=== PATIENT | female | born 1950 | race Caucasian/White ===

== ENCOUNTER 2019-11-20 10:51 | Inpatient (IN) | payer MEDICARE, OTHER ==
[~2019-11-20] VITALS: Ht 165.1 cm; Wt 88.5 kg
--- NOTE | 2019-11-20 10:53 | NUR ---
RADHA BETANCUR FROM [facility] FOR LOW HGB 5.8 & HCT 19.7. TO ER BED 6, PATIENT NON-VERBAL, MOANING FROM TIME TO TIME, NOTED W MULTIPLE BUE AND BLE PURPLE-RED DISCOLORATION AND WOUNDS WRAPPED WITH DRY DRESSING. NOTED W R CHEST DIALYSIS CATHETER AND DOMINIQUE PICC LINE, PATENT AND FLUSHING. CHANGED TO HOSP GOWN, HOOKED TO BP CUFF AND POX, ON 3LPM OF OXYGEN VIA NC, AWAITING MD ALVAREZ.
--- NOTE | 2019-11-20 11:01 | NUR ---
DR HAWKINS AT BEDSIDE FOR EVAL
[2019-11-20] MEDS ORDERED: NA P133E RC (11:23)
[2019-11-20] MEDS ORDERED: MAGN400O6 GT (11:23)
[2019-11-20] MEDS ORDERED: AMLO10TA4 GT (11:23)
[2019-11-20] MEDS ORDERED: BISA10SU61 RC (11:23)
[2019-11-20] MEDS ORDERED: MULT-439 GT (11:23)
[2019-11-20] MEDS ORDERED: ASPI-1169 GT (11:23)
[2019-11-20] MEDS ORDERED: FOLI0.8T2 GT (11:23)
[2019-11-20] MEDS ORDERED: AMIN887L GT (11:23)
[2019-11-20] MEDS ORDERED: ACET-868 GT (11:23)
[2019-11-20] MEDS ORDERED: ZINC1CAP3 GT (11:23)
[2019-11-20] MEDS ORDERED: HYDR-4384 GT ×2 (11:23)
[2019-11-20] MEDS ORDERED: ASCO-373 GT (11:23)
--- NOTE | 2019-11-20 11:24 | NUR ---
LAND CLASSIFIER AT BEDSIDE
--- NOTE | 2019-11-20 11:26 | NUR ---
DOMINIQUE PICC LINE DRESSING CHANGED.
--- NOTE | 2019-11-20 11:31 | NUR ---
RAPID COVID SWAB DONE AND SENT TO LAB
[2019-11-20 11:37] LABS: BASOPHILS # (AUTO) 0.1 /CMM (0.0-0.2); BASOPHILS % (AUTO) 0.9 % (0.0-2.0); EOSINOPHILS % (AUTO) 1.1 % (0.0-6.0); LYMPHOCYTES # (AUTO) 1.7 /CMM (0.8-4.8); LYMPHOCYTES % (AUTO) 10.5 % (20.0-44.0); MEAN CORPUSCULAR HGB CONC 31 g/dl (31.0-36.0); MEAN CORPUSCULAR VOLUME 90 fL (82-100); MONOCYTES # (AUTO) 1.2 /CMM (0.1-1.30); MONOCYTES % (AUTO) 7.3 % (2.0-12.0); NEUTROPHILS % (AUTO) 80.2 % (43.0-81.0); PLATELET COUNT (AUTO) 389 /CMM (150-450); RED BLOOD CELL COUNT(AUTO) 2.08 MIL/uL (4.0-5.2); WHITE BLOOD COUNT (AUTO) 16.2 K/uL (4.3-11.0)
[2019-11-20 11:41] LABS: HEMATOCRIT 19 % (33-45); HEMOGLOBIN 5.7 g/dL (11.5-14.8)
[2019-11-20 11:46] LABS: CALCIUM, SERUM 7.8 mg/dL (8.5-10.1); POTASSIUM 4.5 mmol/L (3.5-5.1)
[2019-11-20 11:52] LABS: BILIRUBIN,DIRECT 0.1 mg/dL (0.0-0.2); BILIRUBIN,TOTAL 0.4 mg/dL (0.2-1.0); TOTAL PROTEIN, SERUM 4.6 g/dL (6.4-8.2)
[2019-11-20 11:53] LABS: ALBUMIN 1.1 g/dL (3.4-5.0)
--- NOTE | 2019-11-20 12:06 | NUR ---
REPORT GIVEN TO CAREY LYNCH FOR PENELOPE.
--- NOTE | 2019-11-20 12:15 | NUR ---
PT GOING TO ROOM 119-T
[2019-11-20] MEDS ORDERED: MAG HYDROX/AL HYDROX/SIMETH 30 ML UDC PO PRN (12:30)
[2019-11-20] MEDS ORDERED: NA PHOS,M-B/NA PHOS,DI-BA 1 EA ENEMA RC PRN (12:30)
[2019-11-20] MEDS ORDERED: ONDANSETRON HCL/PF 4 MG/2 ML VIAL IVP PRN (12:30)
[2019-11-20] MEDS ORDERED: MAGNESIUM HYDROXIDE 30 ML UDC GT PRN ×2 (12:30)
[2019-11-20] MEDS ORDERED: HYDROCODONE/APAP 5/325MG TABLET GT PRN (12:30)
[2019-11-20] MEDS ORDERED: ACETAMINOPHEN 325 MG TABLET PO PRN ×2 (12:30)
[2019-11-20] MEDS ORDERED: Z GUARD REMEDY 2 OZ OINT TP PRN (12:30)
--- NOTE | 2019-11-20 12:36 | NUR ---
COVID RESULT: NEGATIVE
[2019-11-20 12:52] LABS: EOSINOPHILS % (MANUAL) 1 % (0-4); LYMPHOCYTES % (MANUAL) 4 % (16-48); METAMYELOCYTES % 1 % (0-0); MONOCYTES % (MANUAL) 3 % (0-11.0); MYELOCYTES % 2 % (0-0); NEUTROPHILS % (MANUAL) 89 (42-76)
[2019-11-20] MEDS ORDERED: MAG HYDROX/AL HYDROX/SIMETH 30 ML UDC GT PRN (13:02)
--- NOTE | 2019-11-20 13:06 | NUR ---
SOCIAL WORK FACULTY MEMBER NOTES RECEIVED PT FROM E.R. STAFF VIA GREGORY, PT IS AWAKE, NON VERBAL, EPISODES OF YELLING, NOT IN DISTRESS, ASSISTED TO BED, MADE COMFORTABLE, ROOM SET UP ORIENTATION PROVIDED, PT UNABLE TO VERBALIZE UNDERSTANDING DUE TO MENTAL STATUS, ON O2 AT 2LPM VIA N/C, KEPT WARM AND COMFORTABLE IN BED.
[2019-11-20 13:09] LABS: IRON, SERUM 15 ug/dl (50-175); TOTAL IRON BINDING CAPACITY 64 ug/dl (250-450)
[2019-11-20] MEDS ORDERED: ACETAMINOPHEN 650 MG/20.3 ML UDC GT PRN (13:30)
[2019-11-20 15:01] VITALS: BP 110/50
[2019-11-20 15:16] VITALS: BP 113/43
[2019-11-20 16:16] VITALS: BP 117/52
[2019-11-20 18:11] VITALS: BP 113/58
[2019-11-20] MEDS: IV NS 0.9% 1,000 ML IV PRN (18:13)
[2019-11-20] MEDS: SOD FERRIC GLUC 125 MG in IV NS 0.9% 100 ML IV SCH (18:13)
--- NOTE | 2019-11-20 19:00 | NUR ---
FIRE CAPTAIN NOTES PT IN BED, AWAKE, NON VERBAL, DAUGHTER CHARLA SWARTZ CONSENTED FOR BLOOD TRANSFUSION, 1 UNIT PRBC GIVEN, TOLERATED WELL, VITALS STABLE, SKIN ASSESSMENT AND PHOTOS DONE, WOUND DRESSING CHANGE DONE, PM CARE PROVIDED, DUE MEDS GIVEN ORDERED, KEPT WARM AND COMFORTABLE.
--- NOTE | 2019-11-20 19:30 | NUR ---
RADIATOR CLEANER OPENING NOTE RECEIVED PT AWAKE AND MOANING, OPENED EYES WHEN CALLED BY HER NAME. SHE IS LAYING WITH HOB ELEVATED. SHE IS ON 2L NASAL CANNULA WITH ON 02 SATURATION OF 100%. TELE MONITOR READS SINUS BRADYCARDIA AT 58 BPM. SHE HAS A DOMINIQUE PICC LINE THAT IS FLUSHED AND PATIENT INFUSING NS AT 75ML/HR. SHE HAS HD CATHETER RU CHEST AND A PEG TUBE PATENT AND CLAMPED WITH NO RESIDUAL NOTED. AWAITING H&H RESULTS. SHE IS ON DROPLET ISOLATION FOR R/O COVID. BED IS IN LOWEST AND LOCKED POSITION WITH BED ALARM ACTIVATED.
[2019-11-20] MEDS: CEFTRIAXONE 1 G in IV D5W 50 ML IV SCH (19:38)
[2019-11-20] MEDS: HYDROCODONE/APAP 5/325MG TABLET GT PRN (19:39)
[2019-11-20 19:45] LABS: HEMOGLOBIN 7.1 g/dL (11.5-14.8)
--- NOTE | 2019-11-20 20:24 | NUR ---
SLACK LINE YARDER NOTES PAGESD DR DUMAS AND RELAYED H&H OF 7.1 AND 22 POS 1 UNIT PRBC WITH NO NEW ORDER..
[2019-11-20 20:27] VITALS: BP 111/52
[2019-11-21] VITALS (7 sets, daily range): BP systolic 97–117; BP diastolic 40–57
[2019-11-21 06:40] LABS: BASOPHILS % (AUTO) 0.3 % (0.0-2.0); EOSINOPHILS % (AUTO) 1.3 % (0.0-6.0); HEMATOCRIT 23 % (33-45); HEMOGLOBIN 7.2 g/dL (11.5-14.8); LYMPHOCYTES # (AUTO) 1.8 /CMM (0.8-4.8); LYMPHOCYTES % (AUTO) 11.8 % (20.0-44.0); MEAN CORPUSCULAR HGB CONC 32 g/dl (31.0-36.0); MEAN CORPUSCULAR VOLUME 88 fL (82-100); MONOCYTES # (AUTO) 1.1 /CMM (0.1-1.30); MONOCYTES % (AUTO) 7.3 % (2.0-12.0); NEUTROPHILS % (AUTO) 79.3 % (43.0-81.0); PLATELET COUNT (AUTO) 358 /CMM (150-450); RED BLOOD CELL COUNT(AUTO) 2.56 MIL/uL (4.0-5.2); WHITE BLOOD COUNT (AUTO) 15.2 K/uL (4.3-11.0)
--- NOTE | 2019-11-21 06:59 | NUR ---
CLOSING GLUER NOTES PT IS SLEEPING COMFORTABLY IN BED WITH NO S/S OF DISTRESS. SHE IS ON NC 2LPM WITH AN 02 SATURATION OF 100%. HER TELE MONITOR READ SINUS BRADYCARDIA TO NSR THROUGH THE NIGHT FRO 50 TO 65 BPM. SHE WAS KEPT CLEAN AND DRY. PEG TUBE IS CLAMPED AND HAD A RESIDUAL VOLUME OF ZERO. SHE HAS A DOMINIQUE PICC LINE THAT IS PATENT AND AND INFUSING NS AT 75 ML/HR. SHE HAS A R CHEST PERMACATH WITH NO S/S OF INFECTION. PCR IS PENDING AND AWAITING WOUND/DIETARY CONSULT. WILL ENDORSE TO AM RN FOR PENELOPE.
[2019-11-21 07:09] LABS: BILIRUBIN,TOTAL 0.3 mg/dL (0.2-1.0); CALCIUM, SERUM 7.6 mg/dL (8.5-10.1); CREATININE 2.3 mg/dL (0.6-1.3); MAGNESIUM 2.2 mg/dL (1.8-2.4); PHOSPHORUS 2.4 mg/dL (2.5-4.9); POTASSIUM 4.7 mmol/L (3.5-5.1); TOTAL PROTEIN, SERUM 4.7 g/dL (6.4-8.2)
[2019-11-21 07:14] LABS: THYROID STIMULATING HORMONE 11.301 uIU/mL (0.358-3.74)
--- NOTE | 2019-11-21 07:20 | NUR ---
RN NOTE: Received patient in bed and asleep. Isolation precaution to R/O covid-[address] On cont[address] o2 via Nc @ 2lpm being tolerated well. No SOB and not in respiratory distress. Saturation noted @ 98%. Tele monitor showing sinus bradycardia @ 48bpm. Iv sites clean, dry, patent and intact. IV infusion of NS @ 75mls/hr being tolerated well. Gtube patent and in place. No pain noted at the moment. Call light in reach. Bed locked, low and at semi-lopez's position, Side rails up x3. Safety ensured and observed. Will continue to monitor.
[2019-11-21] MEDS: IV NS 0.9% 1,000 ML IV PRN ×2 (09:00→23:43)
[2019-11-21] MEDS: HYDROCODONE/APAP 5/325MG TABLET GT SCH (11:40)
[2019-11-21] MEDS: ZINC SULFATE 220 MG CAPSULE GT SCH (11:40)
[2019-11-21] MEDS: AMLODIPINE BESYLATE 10 MG TABLET GT SCH (11:41)
[2019-11-21] MEDS ORDERED: NEPRO 1,000 ML BOTTLE GT PRN (12:30)
[2019-11-21] MEDS ORDERED: NEUTRA PHOS 1 POWD.PACKET GT ONE (13:00)
[2019-11-21] MEDS: SOD FERRIC GLUC 125 MG in IV NS 0.9% 100 ML IV SCH (14:15)
--- NOTE | 2019-11-21 16:15 | NUR ---
GOVERNMENT RELATIONS ANALYST NOTES REC'D PT IN BED ON 2LPM NC NO SOB NOTED, MOANS AT TIMES ON TELE MONITOR HR 62 ON IV FLUIDS ORDERED DOMINIQUE PICC LINE CHEST PERMA CATH IN PLACE. DRESSING FOR WOUND INTACT ON G-TUBE FEEDING. BED LOW AND LOCKED POSITION SAFETY MEASURES OBSERVED WILL CONT TO MONITOR V/S TAKEN
--- NOTE | 2019-11-21 16:27 | NUR ---
PROFESSOR OF GEOLOGY NOTES PER DIETARY RECOMMENDATION, OK TO START TUBE FEEDING 45 ML FOR 24 HOURS
--- NOTE | 2019-11-21 17:09 | NUR ---
BUCKET PUSHER NOTES RECEIVED PT FROM YANI CAREY ROSALES PT ASLEEP AT THIS TIME, BREATHING PATTERN NORMAL, NO SIGN OF PAIN OR DISTRESS, GT FEEDING INFUSING WELL, IV FLUIDS INFUSING, KEPT COMFORTABLE.
--- NOTE | 2019-11-21 17:15 | NUR ---
CORPORATE INTERN NOTES PT TRANSFER TO TELE UNIT 3RD FLOOR WITH STABLE CONDITION BY BED, REPORT GIVEN CAREY CRUZ
--- NOTE | 2019-11-21 19:03 | NUR ---
PATIENT CARE SPECIALIST NOTES PT IN BED, ASLEEP, EASY TO AROUSE, NIO SIGN OF PAIN OR DISTRESS, TOLERATES CURRENT DIET, IV FLUIDS INFUSING WELL, REPOSITIONED FOR COMFORT, KEPT CLEAN, DRY AND COMFORTABLE.
--- NOTE | 2019-11-21 19:30 | NUR ---
POWER SAW MECHANIC OPENING NOTE RECEIVED PATIENT IN BED. PATIENT IS NONVERBAL, OPENS EYES. ON OXYGEN 2L/MIN VIA NASAL CANNULA, RESPIRATIONS ARE EVEN AND UNLABORED. NO S/S SOB NOTED. NO S/S ANN MARIE NOTED AT THIS TIME. EXTERNAL TELE MONITOR READS SINUS SALLY HR 57. IN NO APPARENT DISTRESS. IV ACCESS IN DOMINIQUE PICC LINE RUNNING NS@75ML/HR. GTUBE IS PRESENT, RESIDUAL IS 0, FLUSHED WITH NO RESISTANCE. FEEDING RUNNING NEPRO@45ML/HR. BED IS LOW AND LOCKED, HOB ELEVATED IN HIGH FOWLERS, SIDE RIALS UP X2. CALL LIGHT WITHIN REACH. WILL CONTINUE TO MONITOR.
[2019-11-21] MEDS: CEFTRIAXONE 1 G in IV D5W 50 ML IV SCH (19:55)
[2019-11-22] VITALS (8 sets, daily range): BP systolic 99–116; BP diastolic 54–71
--- NOTE | 2019-11-22 04:08 | NUR ---
tele marketing executive note informed director of front office MD Dr. Callahan that patient has an order to obtain urine culture from clean cath but patient is nonverbal and not able to let us know when there is a need to void. requested to obtain order for straight cath. telephone ordered straight cath one time. order read back noted and carried out.
[2019-11-22 05:19] LABS: APPEARANCE,URINE TURBID (CLEAR); BILIRUBIN,URINE SMALL (NEGATIVE); BLOOD, URINE LARGE Ery/uL (NEGATIVE); COLOR,URINE OTHER (YELLOW); KETONES,URINE TRACE (NEGATIVE); LEUKOCYTE ESTERASE ,URINE MODERATE (NEGATIVE); NITRITE, URINE POSITIVE (NEGATIVE); PH,URINE 7.5 (5.0-8.0); PROTEIN,URINE >=300 mg/dl (NEGATIVE); UGLUCOSE 100 MG/DL mg/dL (NEGATIVE)
[2019-11-22 05:26] LABS: BACTERIA,URINE Few /HPF (None Seen); RBC,URINE 21-50 /HPF (0-2); SQUAMOUS EPITHELIAL CELL,UR Few /HPF (None Seen); WBC,URINE TOO NUMEROUS TO COUN /HPF (0-3)
[2019-11-22 06:35] LABS: CALCIUM, SERUM 7.5 mg/dL (8.5-10.1); CREATININE 1.8 mg/dL (0.6-1.3); PHOSPHORUS 2.2 mg/dL (2.5-4.9); POTASSIUM 4.2 mmol/L (3.5-5.1)
[2019-11-22] MEDS: LEVOTHYROXINE SODIUM 25 MCG TABLET PO SCH (06:45)
--- NOTE | 2019-11-22 06:57 | NUR ---
STADIUM ATTENDANT CLOSING NOTE PATIENT IN BED. NONVERBAL, OPENS EYES. CONTINUES TO BE ON OXYGEN 2L/MIN VIA NASAL CANNULA. RESPIRATIONS ARE EVEN AND UNLABORED. NO RESPIRATORY DISTRESS NOTED. EXTERNAL TELE MONITOR READS SINUS RHYTHM. NO DISTRESS. IV ACCESS MAINTAINED IN DOMINIQUE PICC LINE RUNNING NS@75ML/HR. GTUBE IS MAINTAINED RUNNING FEEDING RUNNING NEPRO@45ML/HR. BED REMAINS LOW AND LOCKED, HOB ELEVATED IN HIGH FOWLERS, SIDE RIALS UP X2. CALL LIGHT WITHIN REACH. WILL ENDORSE TO NEXT SHIFT.
--- NOTE | 2019-11-22 07:38 | NUR ---
TELE/RN OPENING NOTE RECEIVED PATIENT IN BED. NONVERBAL, OPENS EYES. ON OXYGEN 2L/MIN VIA NASAL CANNULA. RESPIRATIONS ARE EVEN AND UNLABORED. NO RESPIRATORY DISTRESS NOTED. EXTERNAL TELE MONITOR READS SINUS RHYTHM 69 BPM. NO DISTRESS. IV ACCESS MAINTAINED IN DOMINIQUE PICC LINE RUNNING NS@75ML/HR. GTUBE IS MAINTAINED RUNNING FEEDING RUNNING NEPRO@45ML/HR. BED REMAINS LOW AND LOCKED, HOB ELEVATED IN HIGH FOWLERS, SIDE RIALS UP X2. CALL LIGHT WITHIN REACH. WILL CONTINUE TO MONITOR.
[2019-11-22] MEDS: ZINC SULFATE 220 MG CAPSULE GT SCH (08:38)
[2019-11-22] MEDS: HYDROCODONE/APAP 5/325MG TABLET GT SCH (08:39)
[2019-11-22] MEDS: AMLODIPINE BESYLATE 10 MG TABLET GT SCH (08:41)
[2019-11-22] MEDS: NEUTRA PHOS 1 POWD.PACKET PO SCH ×2 (09:19→16:42)
--- NOTE | 2019-11-22 10:06 | NUR ---
WOUND CARE CONSULT: PT PRESENTS WITH MULTIPLE WOUNDS PRESENT ON ADMISSION INCLUDING LARGE SACRAL WOUND WITH PURULENT DRAINAGE AND NECROTIC TISSUE, MULTIPLE DISCOLORATIONS TO BODY AND ARMS WITH SKIN TEARS WELL RASHES WITH MOISTURE ASSOCIATED OPEN SKIN TO SKIN FOLDS. PER RN, LEGS WERE JUST WRAPPED A FEW MINUTES AGO AND KERLIX WRAPS NOTED TO BE DRY AND INTACT. PER ADMISSION PHOTOS THERE ARE HEEL WOUNDS AND NECROTIC WOUNDS TO LOWER LEGS, PRESENT ON ADMISSION. DPM CONSULT CALLED TO DR ALANIZ AND SURGICAL CONSULT TO DR MONROY. PT IS ON GONZALO ISOFLEX LOW AIRLOSS BED. ALL SKIN PROTECTION RECOMMEDATIONS DISCUSSED WITH NURSING STAFF. DEFER TO SURGEON AND DPM FOR WOUND TREATMENT PLAN. MD IN AGREEMENT WITH PLAN OF CARE.
[2019-11-22 10:27] LABS: IRON, SERUM 16 ug/dl (50-175); TOTAL IRON BINDING CAPACITY 537 ug/dl (250-450)
[2019-11-22 11:00] LABS: FERRITIN 1503 ng/mL (8-388)
[2019-11-22] MEDS: SOD FERRIC GLUC 125 MG in IV NS 0.9% 100 ML IV SCH (14:03)
[2019-11-22] MEDS: IV NS 0.9% 1,000 ML IV PRN (15:24)
[2019-11-22] MEDS: NEPRO 1,000 ML BOTTLE GT PRN (15:29)
[2019-11-22] MEDS: HYDROCODONE/APAP 5/325MG TABLET GT PRN (16:43)
--- NOTE | 2019-11-22 19:24 | NUR ---
TELE/RN CLOSING NOTE PATIENT IS IN BED. NONVERBAL, OPENS EYES. ON OXYGEN 2L/MIN VIA NASAL CANNULA. RESPIRATIONS ARE EVEN AND UNLABORED. NO RESPIRATORY DISTRESS NOTED. EXTERNAL TELE MONITOR READS SINUS RHYTHM SR WITH INVERTED T WAVE 65 BPM. NO DISTRESS. IV ACCESS MAINTAINED IN DOMINIQUE PICC LINE RUNNING NS@75ML/HR. GTUBE IS MAINTAINED RUNNING FEEDING RUNNING NEPRO@45ML/HR. BED REMAINS SEEN AND ERMINED BY MD WITH ORDERS MADE AND CARRIED OUT. ALL DUE MEDICATION WAS GIVEN. SAFETY PRECAUTION IN PLACED. BED IN LOWEST POSITION AND LOCKED. SIDE RAILS UP X2. HOB ELEVATED IN HIGH FOWLERS. CALL LIGHT WITHIN REACH. WILL ENDORSED TO MISSING PERSONS INVESTIGATOR FOR PENELOPE.
--- NOTE | 2019-11-22 19:30 | NUR ---
TALENT ASSOCIATE OPENING NOTE RECEIVED PATIENT IN BED. NONVERBAL, OPENS EYES. ON OXYGEN 2L/MIN VIA NASAL CANNULA, RESPIRATIONS ARE EVEN AND UNLABORED. NO S/S SOB NOTED. NO S/S ANN MARIE NOTED AT THIS TIME. EXTERNAL TELE MONITOR READS SINUS RHYTHM HR 65. IN NO APPARENT DISTRESS. IV ACCESS IN DOMINIQUE PICC LINE PATENT AND SALINE LOCKED. GTUBE IS PRESENT, RESIDUAL IS 0, FLUSHED WITH NO RESISTANCE RUNNING NEPRO@45ML/HR. BED IS LOW AND LOCKED, HOB ELEVATED IN HIGH FOWLERS, SIDE RIALS UP X2. CALL LIGHT WITHIN REACH. WILL CONTINUE TO MONITOR.
[2019-11-22] MEDS: CEFTRIAXONE 1 G in IV D5W 50 ML IV SCH (20:05)
[2019-11-22] MEDS: CLOTRIMAZOLE 1% 15 GM TUBE TP SCH (20:06)
[2019-11-22] MEDS: DAKINS QUARTER STRENGTH (0.125%) 480 ML BOTTLE TOP SCH (20:06)
--- NOTE | 2019-11-22 21:45 | NUR ---
PROJECT MANAGER FINANCE NOTE OBTAINED VERBAL CONSENT FOR SERIAL DEBRIDEMENT OF SACRUM VIA TELEPHONE FROM DAUGHTER CHARLA SWARTZ. WITNESSED BY AI PATINO. CONSENT PLACED IN CHART. WILL CONTINUE TO MONITOR.
[2019-11-23] VITALS (11 sets, daily range): BP systolic 97–124; BP diastolic 52–69
--- NOTE | 2019-11-23 00:20 | NUR ---
INDUSTRIAL ELECTRICAL ENGINEER NOTE RECEIVED REPORT FROM CAREY MORRISSEY FOR CONTINUITY OF CARE. RECEIVED PATIENT IN BED. NONVERBAL, OPENS EYES. NO SIGNS OF ACUTE RESPIRATORY OR CARDIAC DISTRESS NOTED. ON OXYGEN 2L/MIN VIA NASAL CANNULA, RESPIRATIONS ARE EVEN AND UNLABORED. NO S/S SOB NOTED. NO S/S ANN MARIE NOTED AT THIS TIME. EXTERNAL TELE MONITOR READS SINUS RHYTHM HR 60s. IV ACCESS IN DOMINIQUE PICC LINE PATENT AND SALINE LOCKED. GTUBE IS PRESENT, RESIDUAL IS 0, FLUSHED WITH NO RESISTANCE RUNNING NEPRO@45ML/HR. SAFETY MEASURES IN PLACE, ASPIRATION PRECAUTION EMPHASIZED.BED IS LOW AND LOCKED, HOB ELEVATED IN HIGH FOWLERS, SIDE RIALS UP X2. CALL LIGHT WITHIN EASY REACH. WILL CONTINUE TO MONITOR ACCORDINGLY.
[2019-11-23 06:30] LABS: BASOPHILS # (AUTO) 0.1 /CMM (0.0-0.2); BASOPHILS % (AUTO) 0.4 % (0.0-2.0); EOSINOPHILS % (AUTO) 1.5 % (0.0-6.0); HEMATOCRIT 21 % (33-45); LYMPHOCYTES % (AUTO) 10.6 % (20.0-44.0); MEAN CORPUSCULAR HGB CONC 31 g/dl (31.0-36.0); MEAN CORPUSCULAR VOLUME 89 fL (82-100); MONOCYTES # (AUTO) 1.2 /CMM (0.1-1.30); MONOCYTES % (AUTO) 6.1 % (2.0-12.0); NEUTROPHILS # (AUTO) 15.7 /CMM (1.8-8.9); NEUTROPHILS % (AUTO) 81.4 % (43.0-81.0); PLATELET COUNT (AUTO) 502 /CMM (150-450); RED BLOOD CELL COUNT(AUTO) 2.33 MIL/uL (4.0-5.2); WHITE BLOOD COUNT (AUTO) 19.2 K/uL (4.3-11.0)
[2019-11-23] MEDS: LEVOTHYROXINE SODIUM 25 MCG TABLET PO SCH (06:32)
--- NOTE | 2019-11-23 06:42 | NUR ---
SKIP HOIST OPERATOR NOTES ALL NEEDS ATTENDED AND MET. ABLE TO REST AND SLEPT AT INTERVALS. WOUND CARE DONE ORDERED. REPOSITIONED FOR COMFORT. ON OXYGEN 2L/MIN VIA NASAL CANNULA, RESPIRATIONS ARE EVEN AND UNLABORED. NO S/S SOB NOTED. NO S/S ANN MARIE NOTED AT THIS TIME. EXTERNAL TELE MONITOR READS SINUS RHYTHM HR 60s. IV ACCESS IN DOMINIQUE PICC LINE PATENT AND SALINE LOCKED. GTUBE IS PRESENT, RESIDUAL IS 0, FLUSHED WITH NO RESISTANCE RUNNING NEPRO@45ML/HR. SAFETY MEASURES IN PLACE, ASPIRATION PRECAUTION EMPHASIZED.BED IS LOW AND LOCKED, HOB ELEVATED IN HIGH FOWLERS, SIDE RIALS UP X2. CALL LIGHT WITHIN EASY REACH. WILL ENDORSE TO AM NURSE FOR CONTINUITY OF CARE.
[2019-11-23 06:47] LABS: HEMOGLOBIN 6.5 g/dL (11.5-14.8)
[2019-11-23 06:52] LABS: CALCIUM, SERUM 7.6 mg/dL (8.5-10.1); CREATININE 2.2 mg/dL (0.6-1.3); POTASSIUM 4.6 mmol/L (3.5-5.1)
--- NOTE | 2019-11-23 07:20 | NUR ---
SCHEDULER MAINTENANCE NOTES PATIENT RECEIVED IN BED, RESTING COMFORTABLY. ABLE TO OPEN EYES, NON-VERBAL, RESPONDS WITH LIGHT TOUCH AND NAME. ON NASAL CANNULA 2 LITERS, WITH NO SIGNS OF RESPIRATORY DISTRESS PRESENT AT THIS TIME, WITH EVEN NON-LABORED BREATHING AND NO SOB NOTED. ON TELECOMMUNICATIONS SALES REPRESENTATIVE, SINUS RHYTHM 67. IV ACCESS INTACT AND PATENT ON LEFT UPPER ARM. PATIENT PRESENTS WITH NO SIGNS OF PAIN OR DISCOMFORT AT THIS TIME. SAFETY PRECAUTIONS IMPLEMENTED WITH BED LOCKED, BED IN THE LOWEST POSITION, BILATERAL SIDE RAILS UP, BED ALARM ON, AND CALL LIGHT WITHIN EASY REACH OF THE PATIENT. WILL CONTINUE TO MONITOR PATIENT.
--- NOTE | 2019-11-23 08:10 | NUR ---
PICK UP DRIVER NOTES PATIENT STARTED HEMODIALYSIS, ROBIN RN AT BEDSIDE. WILL CONTINUE TO MONITOR PATIENT.
[2019-11-23] MEDS: AMLODIPINE BESYLATE 10 MG TABLET GT SCH (08:31)
[2019-11-23] MEDS: ZINC SULFATE 220 MG CAPSULE GT SCH (08:32)
[2019-11-23] MEDS: HYDROCODONE/APAP 5/325MG TABLET GT SCH (08:32)
[2019-11-23] MEDS: CLOTRIMAZOLE 1% 15 GM TUBE TP SCH ×2 (08:40→17:16)
[2019-11-23] MEDS: DAKINS QUARTER STRENGTH (0.125%) 480 ML BOTTLE TOP SCH (08:40)
[2019-11-23 09:00] LABS: LYMPHOCYTES % (MANUAL) 11 % (16-48); NEUTROPHILS % (MANUAL) 78 (42-76)
[2019-11-23 09:01] LABS: EOSINOPHILS % (MANUAL) 3 % (0-4); MONOCYTES % (MANUAL) 8 % (0-11.0)
[2019-11-23] MEDS: SOD FERRIC GLUC 125 MG in IV NS 0.9% 100 ML IV SCH (13:01)
--- NOTE | 2019-11-23 13:43 | NUR ---
CHEMICAL LABORATORY TESTER NOTES DR MEAD EXAMINED BY PATIENT, AT THIS TIME NO NEW ORDERS MADE. WILL CONTINUE TO MONITOR PATIENT.
[2019-11-23] MEDS: NEPRO 1,000 ML BOTTLE GT PRN (15:40)
[2019-11-23] MEDS: SUCRALFATE 1 G TABLET PO SCH ×2 (17:09→21:00)
--- NOTE | 2019-11-23 18:43 | NUR ---
LABORER POLE CREW NOTES PATIENT IN BED RESTING COMFORTABLY. NON-VERBAL WITH OCCASIONAL MUMBLES, PATIENT RESPONSIVE WITH LIGHT TOUCH. ON NASAL CANNULA 2 LITERS, WITH NO SIGNS OF RESPIRATORY DISTRESS WITH NON-LABORED EVEN BREATHING. ON CENTRAL OFFICE REPAIRER SINUS RHYTHM 63. PATIENT FINISHED 1 UNIT OF RBCS BLOOD TRANSFUSION, WITH NO ADVERSE REACTION, VITAL SIGNS REMAINED STABLED, WITH NO SIGNS OF PAIN OR DISCOMFORT, OR CHILLS. PATIENT G-TUBE FEEDING INTACT AND INFUSING NEPRO 45ml/hr. MET ALL OF PATIENT'S NEEDS. PATIENT PRESENTS WITH NO SIGNS OF PAIN OR DISCOMFORT. SAFETY PRECAUTIONS IMPLEMENTED WITH BED LOCKED, BED IN THE LOWEST POSITION, BILATERAL SIDE RAILS UP, BED ALARM ON AND CALL LIGHT WITHIN EASY REACH OF THE PATIENT. WILL ENDORSE PLAN OF CARE TO UPCOMING NURSE.
[2019-11-23] MEDS ORDERED: MEROPENEM 500 MG in IV NS 0.9% 50 ML IV ONE (19:00)
[2019-11-23] MEDS ORDERED: VANCOMYCIN 1.25 GM in IV D5W 250 ML IV ONE (19:00)
--- NOTE | 2019-11-23 20:04 | NUR ---
TELE/RN OPENING NOTE Patient awake in bed, nonverbal. Patient responds to touch and pain stimuli. Face is symmetrical, tongue midline. No tracheal deviation. No JVD. Patient on 2 l/min NC, breath sounds even, clear, unlabored. No respiratory distress or SOB noted. Tele monitor NSR in the 60s. Skin is warm, pink, dry appropriate for ethnicity, generalized bruising noted throughout body. Wound dressing noted on bilateral lower extremities, minimal drainage, serosanguineous. IV DOMINIQUE PICC patent and intact. GTF nepro 45 ml/hr, no residual, patient tolerating well. No signs of redness or infiltration. Bowel sounds hypoactive in all quadrants. Abdomen round, soft, non-tender. Patient is incontinent. Bed in low position, wheels locked, side rails up x2, call light within reach. Addendum: 11/23/19 at 2135 by TAMMY TOBIN RN G-tube residual 38 ml, brown gastric contents.
[2019-11-23] MEDS ORDERED: PANTOPRAZOLE 40 MG VIAL IV SCH (21:00)
[2019-11-24] VITALS: BP 112/53
[2019-11-24 04:00] VITALS: BP 115/58
[2019-11-24] MEDS: MEROPENEM 500 MG in IV NS 0.9% 100 ML IV SCH ×2 (04:22→17:52)
--- NOTE | 2019-11-24 06:49 | NUR ---
TELE/RN CLOSING NOTE Patient awake in bed, nonverbal. Patient responds to touch and pain stimuli. Patient on 2 l/min NC, breath sounds even, clear, unlabored. No respiratory distress or SOB noted. Tele monitor NSR in the 60s. Skin is warm, pink, dry appropriate for ethnicity, generalized bruising noted throughout body. Wound dressings changed to bilateral lower and upper extremities. Skin tears noted on both forearms. Dressing changed on sacral region. IV DOMINIQUE PICC patent and intact. GTF paused d/t leaky g-tube. MD made aware of leaking G-tube. Bowel sounds hypoactive in all quadrants. Abdomen round, soft, non-tender. Patient is incontinent. 1 small bowel movement, brown and soft. OB stool sample retrieved. Bed in low position, wheels locked, side rails up x2, call light within reach.
[2019-11-24] MEDS: SUCRALFATE 1 G TABLET GT SCH ×4 (06:58→21:08)
[2019-11-24] MEDS: LEVOTHYROXINE SODIUM 25 MCG TABLET PO SCH (06:58)
[2019-11-24 07:02] LABS: BASOPHILS # (AUTO) 0.1 /CMM (0.0-0.2); BASOPHILS % (AUTO) 0.3 % (0.0-2.0); EOSINOPHILS % (AUTO) 1.6 % (0.0-6.0); HEMATOCRIT 25 % (33-45); HEMOGLOBIN 7.9 g/dL (11.5-14.8); LYMPHOCYTES # (AUTO) 1.5 /CMM (0.8-4.8); LYMPHOCYTES % (AUTO) 7.4 % (20.0-44.0); MEAN CORPUSCULAR HGB CONC 32 g/dl (31.0-36.0); MEAN CORPUSCULAR VOLUME 89 fL (82-100); NEUTROPHILS # (AUTO) 16.9 /CMM (1.8-8.9); NEUTROPHILS % (AUTO) 85.7 % (43.0-81.0); PLATELET COUNT (AUTO) 491 /CMM (150-450); RED BLOOD CELL COUNT(AUTO) 2.81 MIL/uL (4.0-5.2); WHITE BLOOD COUNT (AUTO) 19.7 K/uL (4.3-11.0)
[2019-11-24 07:24] LABS: CALCIUM, SERUM 7.6 mg/dL (8.5-10.1); CREATININE 1.8 mg/dL (0.6-1.3); POTASSIUM 4.5 mmol/L (3.5-5.1)
[2019-11-24 07:28] LABS: OCCULT BLOOD STOOL NEGATIVE (NEGATIVE)
[2019-11-24 08:00] VITALS: BP 106/55
--- NOTE | 2019-11-24 08:00 | NUR ---
RN NOTES PATOENT GET IN THE BED TOTAL CARE, ON O2 2LNC, NO ACUTE RESPIRATORY DISTRESS, GENERALIZED ROBBIE, WOUND SACRAL, UPPER EXTREMITAS, AND BILATERAL LOWER EXTREMITIES, DRESSING CHANGED, PATIENT PRONE TO BLEED EASILY. HOLD GTF BECAUSE OF PLACEMENT. PICC LINE ON LEFT UPPER ARM INTACT, ASSIST TURN AND REPOSTION Q 2 HR.
[2019-11-24 08:02] VITALS: BP 106/55
[2019-11-24] MEDS: ZINC SULFATE 220 MG CAPSULE GT SCH (09:00)
[2019-11-24] MEDS: PANTOPRAZOLE 40 MG/PACK PACK GT SCH ×2 (09:00→21:00)
[2019-11-24] MEDS: AMLODIPINE BESYLATE 10 MG TABLET GT SCH (09:00)
[2019-11-24] MEDS: HYDROCODONE/APAP 5/325MG TABLET GT SCH (09:00)
--- NOTE | 2019-11-24 09:00 | NUR ---
RN NOTES UNABLE TO ADMINISTERED SCHEDULED MEDICATION BECAUSE OF GT IS LEAKING, ALSO STOP FEEDING. PATIENT TOTAL CARE. HOSPITALIST AWARE OF PATIENT CONDITION, GI SPECIALIST AWARE OF GT LEAKAGE. ASSIST TURN AND REPOSTION Q 2 HR, CONTINUED MONITORING.
[2019-11-24] MEDS: CLOTRIMAZOLE 1% 15 GM TUBE TP SCH ×2 (10:18→17:53)
[2019-11-24] MEDS: DAKINS QUARTER STRENGTH (0.125%) 480 ML BOTTLE TOP SCH (10:18)
[2019-11-24] MEDS: SOD FERRIC GLUC 125 MG in IV NS 0.9% 100 ML IV SCH (13:24)
[2019-11-24] MEDS ORDERED: SOD FERRIC GLUC 125 MG in IV NS 0.9% 100 ML IV SCH (14:00)
--- NOTE | 2019-11-24 15:08 | NUR ---
RN NOTES NOTIFIED HOSPITALIST FOR GT LEAKAGE, AND UNABLE TO ADMINISTER SCHEDULED MEDICATION, PATENT CRYING, HARD ABDOMEN WHEN PALPATED, PER BLADDER SCAN GET 514 ML OUTPUT, GET TO ORDER RIDER PLACEMENT, AND STAT CT WO CONTRAST GT PLACEMENT LEAKAGE. ORDER TAKEN AND CARRIED OUT.
--- NOTE | 2019-11-24 16:10 | NUR ---
RN NOTES PATIENT COLLAR TURNER AT THIS TIME FOR CT ABDOMEN, AND PELVIC WO CONTRAST.
--- NOTE | 2019-11-24 16:30 | NUR ---
RN NOTES PATIENT BACK AT THIS TIME. GET RIDER CATHETER PLACEMENT, GET RESISTANCE, NOTIFIED GET TO ORDER X-RAY KUB FOR RIDER PLACEMENT. ORDER TAKEN AND CARRIED OUT.
--- NOTE | 2019-11-24 18:30 | NUR ---
RN NOTES PATIENT STABLE , ASSIST TURN AND REPOSTION Q 2 HR. ENDORSED ONCOMING NURSE FOLLOW PLAN OF CARE.
[2019-11-24] MEDS ORDERED: DIATR MEGLU/DIATRIZOATE SODIUM 30 ML BOTTLE (GASTROGRAPHIN) ONE (18:35)
--- NOTE | 2019-11-24 19:38 | NUR ---
MS/RN OPENING NOTE Patient awake in bed, nonverbal. Patient responds to touch and pain stimuli. Face is symmetrical. No JVD. Patient on 2 l/min NC, breath sounds even, clear, unlabored. No respiratory distress or SOB noted. Skin is warm, pink, dry appropriate for ethnicity, generalized bruising noted throughout body. Wound dressing noted on bilateral lower extremities, moderate drainage, serosanguineous. Skin tears noted on bilateral forearms, wound dressing is moderate, serosanguineous. IV DOMINIQUE PICC patent and intact. G-tube leaking, no feeding at this time, pending g-tube replacement. Bowel sounds hypoactive in all quadrants. Abdomen large and round, mild firmness. Patient is incontinent. Bed in low position, wheels locked, side rails up x2, call light within reach.
[2019-11-24 20:00] VITALS: BP 101/45
[2019-11-24 20:55] VITALS: BP 101/45
--- NOTE | 2019-11-24 21:08 | NUR ---
MS/RN NOTE Unable to administer medications d/t leaky gastrostomy tube. MD aware. Will continue to monitor.
--- NOTE | 2019-11-25 01:14 | NUR ---
MS/RN NOTE Monteiro catheter draining bright red, clear urine, 20 ml. Notified MD. No new orders at this time. Will continue to monitor.
[2019-11-25] MEDS: MEROPENEM 500 MG in IV NS 0.9% 100 ML IV SCH ×2 (04:06→17:07)
--- NOTE | 2019-11-25 05:36 | NUR ---
MS/RN CLOSING NOTE Patient awake in bed, nonverbal. Patient responds to touch and pain stimuli. Patient on 2 l/min NC, breath sounds even, clear, unlabored. No respiratory distress or SOB noted. Skin is warm, pink, dry appropriate for ethnicity, generalized bruising noted throughout body. Wound dressings changed to bilateral lower and upper extremities. Skin tears noted on both forearms. Dressing changed on sacral region. IV DOMINIQUE PICC patent and intact. GTF paused d/t leaky g-tube. MD aware of leaking G-tube. No medications were given. Bowel sounds hypoactive in all quadrants. Abdomen large round, soft, non-tender. Patient is incontinent. 1 small bowel movement, brown and soft. Bed in low position, wheels locked, side rails up x2, call light within reach. Addendum: 11/25/19 at 0543 by TAMMY TOBIN RN Monteiro catheter urinary output 15 ml bright red clear, few blood clots.
[2019-11-25 07:18] LABS: CALCIUM, SERUM 7.5 mg/dL (8.5-10.1); CREATININE 2.1 mg/dL (0.6-1.3); POTASSIUM 4.7 mmol/L (3.5-5.1)
[2019-11-25] MEDS: LEVOTHYROXINE SODIUM 25 MCG TABLET PO SCH (07:30)
[2019-11-25] MEDS: SUCRALFATE 1 G TABLET GT SCH ×4 (07:30→22:00)
--- NOTE | 2019-11-25 07:52 | NUR ---
RN NOTES RECEIVED PATIENT ON O2-2LNC, NO ACUTE RESPIRATORY DISTRESS, V/S TAKEN STABLE, PATIENT HAS GENERALIZED EDEMA, TOTAL CARE. GTF STOP BECAUSE OF SCHEDULED NEW GT PLACEMENT, PATIENT TOTAL CARE, NPO, NONVERBAL, IV ACCESS ON LUP PICC LINE INTACT, ASSIST TURN AND REPOSTION Q2 HR. CONTINUED MONITORING.
[2019-11-25 07:57] VITALS: BP 114/48
[2019-11-25 08:00] VITALS: BP 114/48
[2019-11-25] MEDS ORDERED: VANCOMYCIN 1 GM in IV D5W 250ml IV SCH (08:00)
[2019-11-25 08:03] LABS: BASOPHILS % (AUTO) 0.2 % (0.0-2.0); EOSINOPHILS % (AUTO) 0.7 % (0.0-6.0); HEMATOCRIT 27 % (33-45); HEMOGLOBIN 8.2 g/dL (11.5-14.8); LYMPHOCYTES # (AUTO) 2.3 /CMM (0.8-4.8); LYMPHOCYTES % (AUTO) 11.4 % (20.0-44.0); MEAN CORPUSCULAR HGB CONC 30 g/dl (31.0-36.0); MEAN CORPUSCULAR VOLUME 94 fL (82-100); MONOCYTES % (AUTO) 5.3 % (2.0-12.0); NEUTROPHILS # (AUTO) 16.4 /CMM (1.8-8.9); NEUTROPHILS % (AUTO) 82.4 % (43.0-81.0); PLATELET COUNT (AUTO) 452 /CMM (150-450); RED BLOOD CELL COUNT(AUTO) 2.91 MIL/uL (4.0-5.2); WHITE BLOOD COUNT (AUTO) 19.9 K/uL (4.3-11.0)
[2019-11-25] MEDS: HYDROCODONE/APAP 5/325MG TABLET GT SCH (08:05)
[2019-11-25] MEDS: ZINC SULFATE 220 MG CAPSULE GT SCH (08:06)
[2019-11-25] MEDS: PANTOPRAZOLE 40 MG/PACK PACK GT SCH ×2 (08:06→21:00)
[2019-11-25] MEDS: AMLODIPINE BESYLATE 10 MG TABLET GT SCH (08:06)
[2019-11-25] MEDS: DAKINS QUARTER STRENGTH (0.125%) 480 ML BOTTLE TOP SCH (08:07)
[2019-11-25] MEDS: CLOTRIMAZOLE 1% 15 GM TUBE TP SCH ×2 (08:07→17:07)
--- NOTE | 2019-11-25 09:20 | NUR ---
RN NOTES PATIENT GETTING HEMODIALYSIS AT THIS TIME.
--- NOTE | 2019-11-25 12:00 | NUR ---
rn notes finished hemodialysis at this time, no output, removed. patient stable, assist turn and reposition q2 hr. patient npo for new GT placement. dressing changed. will continue monitoring.
[2019-11-25 13:20] LABS: BAND % (MANUAL) 1 % (0.0-5.0); LYMPHOCYTES % (MANUAL) 1 % (16-48); MONOCYTES % (MANUAL) 2 % (0-11.0); MYELOCYTES % 1 % (0-0); NEUTROPHILS % (MANUAL) 95 (42-76)
[2019-11-25 16:00] VITALS: BP_SYST 116; BP_DIAS 60; BP_DIAS 61
--- NOTE | 2019-11-25 18:00 | NUR ---
RN NOTES PATIENT STABLE NPO SCHEDULED GT PLACEMENT TOMORROW, KEEP HOB ELEVATED FOR ASPIRATION PRECAUTION, V/S WNL, ASSIST TURN AND REPOSTION Q2 H, RIDER DRAINING BLOODY URINE 10 CC, ASSIST TURN AND REPOSTION Q2HR. ENDORSED ONCOMING NURSE FOLLOW PLAN OF CARE.
[2019-11-25] MEDS: FLUCONAZOLE IN NS 100 MG in PREMIX 1 EA IV SCH ×2 (19:04)
--- NOTE | 2019-11-25 19:43 | NUR ---
MS RN NOTES RECEIVED PATIENT ON O2-2LNC, NO ACUTE RESPIRATORY DISTRESS, SAFETY MEASURES IN PLACE, PATIENT HAS GENERALIZED EDEMA, TOTAL CARE. SCHEDULED NEW GT PLACEMENT, TOMORROW 11/26/19. PATIENT IS TOTAL CARE, NPO, NONVERBAL, IV ACCESS ON LUP PICC LINE INTACT, ASSIST TURN AND REPOSITION Q2 HR. ALL NEEDS ANTICIPATED. WILL CONTINUE TO MONITOR ACCORDINGLY.
[2019-11-25 20:00] VITALS: BP 114/63
[2019-11-26] MEDS: MEROPENEM 500 MG in IV NS 0.9% 100 ML IV SCH ×2 (04:49→17:05)
--- NOTE | 2019-11-26 06:25 | NUR ---
MS RN NOTES ALL NEEDS ATTENDED AND MET ABLE TO REST COMFORTABLY, WOUND CARE DONE ORDERED, NPO MAINTAINED, IV ACCESS INTACT AND PATENT, ALL NEEDS ANTICIPATED, WILL ENDORSE TO AM NURSE FOR CONTINUITY OF CARE.
--- NOTE | 2019-11-26 07:10 | NUR ---
MS RN OPENING NOTE RECEIVED PT RESTING IN BED AT THIS TIME. NONVERBAL, OPENS EYES. ABLE TO RESPONSE TO TOUCH STIMULUS. PT ON OXYGEN 2L/MIN VIA NASAL CANNULA, RESPIRATIONS ARE EVEN AND UNLABORED. NO SOB NOTED. NO S/S PAIN NOTED AT THIS TIME. NO S/S OF ANY ACUTE DISTRESS NOTED. DOMINIQUE PICC LINE NOTED, INTACT, PATENT, FLUSHING WELL AND SALINE LOCKED. G-TUBE NOTED BED. PT ON NPO STATUS. RIDER CATHETER IN PLACE, NO URINE OUTPUT NOTED. FALL AND SAFETY PRECAUTION IN PLACE AND MAINTAINED AT ALL TIMES. BED IN LOWEST LOCKED POSITION, HOB ELEVATED, RAILS UP X 2, CALL LIGHT WITHIN REACH. WILL CONTINUE TO MONITOR
[2019-11-26] MEDS: SUCRALFATE 1 G TABLET GT SCH ×4 (07:15→21:21)
[2019-11-26] MEDS: LEVOTHYROXINE SODIUM 50 MCG TABLET PO SCH (07:15)
[2019-11-26 07:53] LABS: BASOPHILS # (AUTO) 0.1 /CMM (0.0-0.2); BASOPHILS % (AUTO) 0.5 % (0.0-2.0); EOSINOPHILS % (AUTO) 1.8 % (0.0-6.0); HEMATOCRIT 32 % (33-45); HEMOGLOBIN 9.1 g/dL (11.5-14.8); LYMPHOCYTES # (AUTO) 1.7 /CMM (0.8-4.8); LYMPHOCYTES % (AUTO) 8.7 % (20.0-44.0); MEAN CORPUSCULAR HGB CONC 29 g/dl (31.0-36.0); MEAN CORPUSCULAR VOLUME 98 fL (82-100); MONOCYTES # (AUTO) 0.9 /CMM (0.1-1.30); MONOCYTES % (AUTO) 4.9 % (2.0-12.0); NEUTROPHILS # (AUTO) 16.1 /CMM (1.8-8.9); NEUTROPHILS % (AUTO) 84.1 % (43.0-81.0); PLATELET COUNT (AUTO) 317 /CMM (150-450); RED BLOOD CELL COUNT(AUTO) 3.22 MIL/uL (4.0-5.2); WHITE BLOOD COUNT (AUTO) 19.1 K/uL (4.3-11.0)
[2019-11-26 08:00] VITALS: BP 100/53
[2019-11-26] MEDS: PANTOPRAZOLE 40 MG/PACK PACK GT SCH ×2 (09:00→21:20)
[2019-11-26] MEDS: ZINC SULFATE 220 MG CAPSULE GT SCH (09:00)
[2019-11-26] MEDS: HYDROCODONE/APAP 5/325MG TABLET GT SCH (09:00)
[2019-11-26] MEDS: AMLODIPINE BESYLATE 10 MG TABLET GT SCH (09:00)
[2019-11-26 09:10] LABS: CALCIUM, SERUM 7.6 mg/dL (8.5-10.1); CREATININE 1.9 mg/dL (0.6-1.3); POTASSIUM 4.5 mmol/L (3.5-5.1)
[2019-11-26] MEDS: CLOTRIMAZOLE 1% 15 GM TUBE TP SCH ×2 (09:42→17:04)
[2019-11-26] MEDS ORDERED: VANCOMYCIN 1 GM in IV D5W 250 ML IV ONE (10:00)
[2019-11-26] MEDS: DAKINS QUARTER STRENGTH (0.125%) 480 ML BOTTLE TOP SCH (10:02)
--- NOTE | 2019-11-26 15:00 | NUR ---
PT SCHEDULED FOR PERCUTANEOUS ENDOSCOPIC GASTROSTOMY TUBE INSERTION. TELEPHONE CONSENT FOR PROCEDURE , BLOOD AND ANESTHESIA, CONFIRMED AND SIGNED BY TWO NURSES AND FILED IN CHART. PROCEDURE CHECKLIST DONE AND FILED IN CHART. WILL CONTINUE TO MONITOR Addendum: 11/26/19 at 1536 by JAYDEN HESS RN PT SCHEDULED FOR PERCUTANEOUS ENDOSCOPIC GASTROSTOMY TUBE INSERTION. TELEPHONE CONSENT FOR PROCEDURE , BLOOD AND ANESTHESIA, RECEIVED FROM PT'S DAUGHTER, CHARLA AT THIS TIME. TELEPHONE CONSENT WITNESS, CONFIRMED AND SIGNED BY TWO NURSES AND FILED IN CHART. PROCEDURE CHECKLIST DONE AND FILED IN CHART. WILL CONTINUE TO MONITOR
[2019-11-26] MEDS ORDERED: CLINDAMYCIN 900 MG/6 ML VIAL ONE (18:36)
--- NOTE | 2019-11-26 18:45 | NUR ---
MS RN CLOSING NOTES PT RESTING IN BED AT THIS TIME. PT REMAINED STABLE THROUGHOUT SHIFT. PT KEPT CLEAN AND DRY. ALL CARE, NEEDS, MEDICATION AND WOUND TREATMENT ADMINISTERED ANTICIPATED PER ORDER. FC CARE PROVIDED. PT REPOSITIONED Q2HR, PRN AND PER PROTOCOL. ASPIRATION AND SAFETY PRECAUTION IN PLACE AND MAINTAINED AT ALL TIMES. BED IN LOWEST LOCKED POSITION, HOB ELEVATED, RAILS UP X 2, CALL LIGHT WITHIN REACH. WILL ENDORSE TO ELECTRICAL ENGINEERING TEACHER NURSE FOR PENELOPE
[2019-11-26] MEDS: FLUCONAZOLE IN NS 100 MG in PREMIX 1 EA IV SCH ×2 (19:00)
--- NOTE | 2019-11-26 19:00 | NUR ---
PT TRANSPORTED BY BED FROM UNIT AT THIS TIME WITH ACLS PROTOCOLS TO OR FOR PERCUTANEOUS ENDOSCOPIC GASTROSTOMY TUBE INSERTION. WILL CONTINUE WITH PLAN OF CARE
[2019-11-26] MEDS ORDERED: SILVER NITRATE APPLICATOR 1 EA BOX TP ONE (20:00)
[2019-11-26] MEDS ORDERED: LIDOCAINE 1%-EPI 1:100,000 20 ML VIAL TP ONE (20:00)
--- NOTE | 2019-11-26 20:01 | NUR ---
RN NOTES PATIENT CAME BACK FROM OR AT 1954 FOR PEG INSERTION. IN STABLE CONDITION, LATEST BP 121/104 HR 64 SATING 100% ON 2LPM VIA NASAL CANNULA. SAFETY MEASURES IN PLACE, BED IN LOW LOCKED POSITION. CALL LIGHT WITHIN REACH. ALL NEEDS ANTICIPATED, AWAITING FOR ORDERS FROM DR. ORTIZ. WILL MONITOR ACCORDINGLY.
[2019-11-26 21:03] VITALS: BP 121/104
[2019-11-26] MEDS: NEPRO 1,000 ML BOTTLE GT PRN (21:04)
[2019-11-26 21:09] VITALS: BP 110/42
[2019-11-26 22:06] VITALS: BP 110/42
[2019-11-27] MEDS: MEROPENEM 500 MG in IV NS 0.9% 100 ML IV SCH ×2 (04:29→16:12)
--- NOTE | 2019-11-27 06:42 | NUR ---
MS RN NOTES ALL NEEDS ATTENDED AND MET ABLE TO REST COMFORTABLY, WOUND CARE DONE ORDERED, RIDER CATHETER INTACT AND PATENT, PATIENT IS ANURIC, IV ACCESS INTACT AND PATENT, GT FEEDING TOLERATING WELL, REPOSITIONED FOR COMFORT.ALL NEEDS ANTICIPATED, WILL ENDORSE TO AM NURSE FOR CONTINUITY OF CARE.
--- NOTE | 2019-11-27 07:29 | NUR ---
RN NOTES FOR SERIAL WOUND DEBRIDEMENT TODAY, SPOKE WITH WOUND NURSE CAREY MCNAMARA, [place], CONSENT OBTAINED DATED 11/22/19. ENDORSED TO AM NURSE CAREY OSUNA FOR CONTINUITY OF CARE.
--- NOTE | 2019-11-27 07:40 | NUR ---
MS RN NOTES RECEIVED PT IN BED, ASLEEP, ABLE TO AROUSE, OPENS EYES, NONVERBAL. PT ON SUPPLEMENTARY OXYGEN AT 2L VIA NC, WITH NO ACUTE RESPIRATORY DISTRESS NOTED. PT NOT EXHIBITING ANY PAIN AT THIS TIME, PT APPEARS CALM. DOMINIQUE PICC, FLUSHED WITH NS, INTACT AND OPERATIONAL. FC IN PLACE. PT KEPT COMFORTABLE IN BED. CALL LIGHT KEPT WITHIN REACH. PT'S BED IN LOWEST, LOCKED POSITION WITH SR X3. WILL CONTINUE PLAN OF CARE.
[2019-11-27 07:57] LABS: BASOPHILS # (AUTO) 0.1 /CMM (0.0-0.2); BASOPHILS % (AUTO) 0.4 % (0.0-2.0); EOSINOPHILS % (AUTO) 0.7 % (0.0-6.0); HEMATOCRIT 28 % (33-45); HEMOGLOBIN 8.8 g/dL (11.5-14.8); LYMPHOCYTES # (AUTO) 1.5 /CMM (0.8-4.8); LYMPHOCYTES % (AUTO) 7.3 % (20.0-44.0); MEAN CORPUSCULAR HGB CONC 32 g/dl (31.0-36.0); MEAN CORPUSCULAR VOLUME 90 fL (82-100); MONOCYTES # (AUTO) 0.7 /CMM (0.1-1.30); MONOCYTES % (AUTO) 3.5 % (2.0-12.0); NEUTROPHILS # (AUTO) 18.1 /CMM (1.8-8.9); NEUTROPHILS % (AUTO) 88.1 % (43.0-81.0); PLATELET COUNT (AUTO) 475 /CMM (150-450); RED BLOOD CELL COUNT(AUTO) 3.07 MIL/uL (4.0-5.2); WHITE BLOOD COUNT (AUTO) 20.5 K/uL (4.3-11.0)
[2019-11-27 08:01] LABS: CALCIUM, SERUM 7.9 mg/dL (8.5-10.1); CREATININE 2.1 mg/dL (0.6-1.3); POTASSIUM 5.2 mmol/L (3.5-5.1)
[2019-11-27 08:10] VITALS: BP 106/75
[2019-11-27] MEDS: PANTOPRAZOLE 40 MG/PACK PACK GT SCH ×2 (08:59→21:47)
[2019-11-27] MEDS: SUCRALFATE 1 G TABLET GT SCH ×4 (08:59→21:47)
[2019-11-27] MEDS: ZINC SULFATE 220 MG CAPSULE GT SCH (08:59)
[2019-11-27] MEDS: LEVOTHYROXINE SODIUM 50 MCG TABLET PO SCH (08:59)
[2019-11-27] MEDS: AMLODIPINE BESYLATE 10 MG TABLET GT SCH (09:00)
[2019-11-27] MEDS: HYDROCODONE/APAP 5/325MG TABLET GT SCH (09:15)
[2019-11-27] MEDS: DAKINS QUARTER STRENGTH (0.125%) 480 ML BOTTLE TOP SCH (09:15)
[2019-11-27] MEDS: CLOTRIMAZOLE 1% 15 GM TUBE TP SCH ×2 (09:16→16:12)
[2019-11-27 09:52] LABS: BAND % (MANUAL) 6 % (0.0-5.0); EOSINOPHILS % (MANUAL) 3 % (0-4); LYMPHOCYTES % (MANUAL) 2 % (16-48); MONOCYTES % (MANUAL) 3 % (0-11.0); NEUTROPHILS % (MANUAL) 86 (42-76)
[2019-11-27] MEDS ORDERED: IV NS 0.9% 1,000 ML IV SCH (10:00)
[2019-11-27] MEDS ORDERED: FUROSEMIDE 20 MG/2 ML VIAL IV ONE (10:00)
--- NOTE | 2019-11-27 10:16 | NUR ---
MS RN NOTES RECEIVED ORDER NS @200ML/HR AND LASIX IV ONCE. RN VERIFIED WITH DR. NAPOLES THAT PT ON HD. PER DR. NAPOLES TO DISCONTINUE BOTH.
--- NOTE | 2019-11-27 12:05 | NUR ---
MS RN NOTES HD JUST FINISHED, PER RN/ROBIN/HD NURSE, NO OUTPUT TODAY, JUST CLEANING, VITALS STABLE. WILL CONTINUE TO MONITOR.
--- NOTE | 2019-11-27 12:15 | NUR ---
MS RN NOTES SEEN AND EVALUATED BY DR. GARCIA, NO INTERVENTIONS NOTED.
--- NOTE | 2019-11-27 13:17 | NUR ---
MS RN NOTES RN SPOKE TO PHARMACIST/DUNG, CONFIRMED IV VANCO DOSE TO BE GIVEN WHEN MEDICINE ARRIVES. AND IV SODIUM PHOSPHATE WELL.
[2019-11-27] MEDS: VANCOMYCIN 500 MG in IV D5W 100 ML IV PRN (14:52)
--- NOTE | 2019-11-27 15:05 | NUR ---
MS RN NOTES CLERICAL ADMINISTRATIVE ASSISTANT/YULISSA DID SERIAL DEBRIDEMENT OF SACRUM WOUND OF PT. SHE COLLECTED WOUND CULTURE WITH SMALL BONE SPECIMEN. CALLED LAB THAT SPECIMEN IS READY FOR DAY HABILITATION SUPERVISOR.
--- NOTE | 2019-11-27 15:11 | NUR ---
MS RN NOTED NOTED GT RESIDUAL OF 150ML, HELD GTFEEDING. NO VOMITING NOTED. WILL CONTINUE TO MONITOR. NOTIFIED CHARGE NURSE/BRANT WELL.
--- NOTE | 2019-11-27 15:15 | NUR ---
MS RN NOTES NOTIFIED HOSPITALIST/CN REGARDING GT SITE LEAKING WITH FEEDING-COLORED SECRETION. AWAITING FOR CALL BACK.
[2019-11-27 16:00] VITALS: BP 94/56
--- NOTE | 2019-11-27 16:37 | NUR ---
MS RN NOTES RECEIVED CALL BACK FROM HOSPITALIST/CN REGARDING THE LEAKING OF GT SITE (FEEDING), ORDERED TO HOLD FEEDING FOR ANOTHER 3HOURS AND RESUME FEEDING. IF STILL LEAKING LET HIM KNOW AND HE'LL PUT NEW ORDERS IN. WILL CONTINUE TO MONITOR.
[2019-11-27] MEDS: FLUCONAZOLE IN NS 100 MG in PREMIX 1 EA IV SCH ×2 (17:26)
--- NOTE | 2019-11-27 18:40 | NUR ---
MS RN NOTES RECEIVED PT IN BED, INTERMITTENTLY DOZING OFF, OPENS EYES, NONVERBAL. PT ON SUPPLEMENTARY OXYGEN AT 2L VIA NC, WITH NO ACUTE RESPIRATORY DISTRESS NOTED. PT NOT EXHIBITING ANY PAIN AT THIS TIME, PT APPEARS CALM. DOMINIQUE PICC, FLUSHED WITH NS, INTACT AND OPERATIONAL. RESTARTED GT FEEDING NEPHRO @45ML/HR, NO RESIDUALS NOTED. FC IN PLACE, OUTPUT OF 10ML. PT KEPT COMFORTABLE IN BED. CALL LIGHT KEPT WITHIN REACH. PT'S BED IN LOWEST, LOCKED POSITION WITH SR X3. WILL ENDORSE TO INCOMING NIGHT NURSE FOR PENELOPE.
[2019-11-27 20:00] VITALS: BP 131/58
--- NOTE | 2019-11-27 20:00 | NUR ---
MS RN OPENING NOTE: Patient in bed sleeping comfortably. No SOB or respiratory distress noted. Patient on 2L Nasal canula and breathing well, breathing unlabored and equal. Noted right chest wall perma cath. Intact and dry. Noted Left upper arm PICC line; dressing intact, flushes well, patent, no redness, or infiltration. Noted lawrence catheter draining tea colored output. Patient on Gtube feeding. Dressing is dry and intact. Flushes well, patent. Safety precaution is in place, bed is in the lowest level, brakes are on, alarm is on, side rails x2 are up, and call light is within reach. Will continue to monitor.
--- NOTE | 2019-11-28 03:30 | NUR ---
RN NOTES RECEIVED PT.AWAKE, NON-VERBAL, O G-TUBE FEEDING, NO RESIDUAL NOTED, F/C DRAINIMG OLYA URINE, BED IN LOCKED POSITION, SIDERAILSUPX2, CONTINUE TO MONITOR
[2019-11-28] MEDS: MEROPENEM 500 MG in IV NS 0.9% 100 ML IV SCH ×2 (04:22→17:54)
[2019-11-28] MEDS: SUCRALFATE 1 G TABLET GT SCH ×4 (06:35→21:19)
[2019-11-28] MEDS: LEVOTHYROXINE SODIUM 50 MCG TABLET PO SCH (06:35)
--- NOTE | 2019-11-28 06:47 | NUR ---
MS RN NOTE: Patient in bed sleeping comfortably. No SOB or respiratory distress noted. Safety measures in place, bed in the lowest level, brakes are on, alarm is on, side rails x2 are up, and call light is within reach. Will endorse to next shift.
[2019-11-28 07:22] LABS: BILIRUBIN,TOTAL 0.3 mg/dL (0.2-1.0); CALCIUM, SERUM 7.6 mg/dL (8.5-10.1); CREATININE 1.9 mg/dL (0.6-1.3); MAGNESIUM 2.1 mg/dL (1.8-2.4); PHOSPHORUS 2.3 mg/dL (2.5-4.9); POTASSIUM 4.5 mmol/L (3.5-5.1); TOTAL PROTEIN, SERUM 4.5 g/dL (6.4-8.2)
[2019-11-28 07:29] LABS: ALBUMIN 0.9 g/dL (3.4-5.0)
--- NOTE | 2019-11-28 07:35 | NUR ---
ms rn received on bed, awake,non verbal patient,multiple bilateral upper and lower extremities wounds w/ dressing noted, weeping, on g tube feeding of nephro at 45ml/hour, infusing well,not in distress, will monitor patient.
[2019-11-28 08:00] VITALS: BP 120/74
--- NOTE | 2019-11-28 09:00 | NUR ---
MS RN RECEIVED LOW ALBUMIN LEVEL FROM LAB, WAS SEEN BY CLAUS FELDER, WAS AWARE OF ALBUMIN LEVEL.
[2019-11-28 09:11] LABS: BASOPHILS % (AUTO) 0.1 % (0.0-2.0); EOSINOPHILS % (AUTO) 0.5 % (0.0-6.0); HEMATOCRIT 25 % (33-45); LYMPHOCYTES # (AUTO) 1.2 /CMM (0.8-4.8); LYMPHOCYTES % (AUTO) 6.1 % (20.0-44.0); MEAN CORPUSCULAR HGB CONC 31 g/dl (31.0-36.0); MEAN CORPUSCULAR VOLUME 90 fL (82-100); MONOCYTES # (AUTO) 0.8 /CMM (0.1-1.30); MONOCYTES % (AUTO) 4.1 % (2.0-12.0); NEUTROPHILS # (AUTO) 17.9 /CMM (1.8-8.9); NEUTROPHILS % (AUTO) 89.2 % (43.0-81.0); PLATELET COUNT (AUTO) 431 /CMM (150-450); RED BLOOD CELL COUNT(AUTO) 2.82 MIL/uL (4.0-5.2); WHITE BLOOD COUNT (AUTO) 20.1 K/uL (4.3-11.0)
[2019-11-28] MEDS: AMLODIPINE BESYLATE 10 MG TABLET GT SCH (09:50)
[2019-11-28] MEDS: PANTOPRAZOLE 40 MG/PACK PACK GT SCH ×2 (09:50→21:19)
[2019-11-28] MEDS: ZINC SULFATE 220 MG CAPSULE GT SCH (09:50)
[2019-11-28] MEDS: HYDROCODONE/APAP 5/325MG TABLET GT SCH (09:50)
[2019-11-28] MEDS: CLOTRIMAZOLE 1% 15 GM TUBE TP SCH ×2 (11:26→18:00)
[2019-11-28] MEDS: DAKINS QUARTER STRENGTH (0.125%) 480 ML BOTTLE TOP SCH (11:26)
[2019-11-28 11:29] LABS: BAND % (MANUAL) 1 % (0.0-5.0); EOSINOPHILS % (MANUAL) 1 % (0-4); LYMPHOCYTES % (MANUAL) 1 % (16-48); MONOCYTES % (MANUAL) 5 % (0-11.0); NEUTROPHILS % (MANUAL) 92 (42-76)
[2019-11-28 16:00] VITALS: BP 103/38
--- NOTE | 2019-11-28 16:00 | NUR ---
MS CAREY WAS SEEN BY LEIGHTON DRIER AND GRINDER TENDER, AWAITING FOR ORDERS.
[2019-11-28] MEDS: FLUCONAZOLE IN NS 100 MG in PREMIX 1 EA IV SCH ×2 (17:54)
--- NOTE | 2019-11-28 18:19 | NUR ---
MS RN CHANGE DRESSINGS, ALL NEEDS ATTENDED.
[2019-11-28 20:00] VITALS: BP 90/46
--- NOTE | 2019-11-28 20:00 | NUR ---
RN NOTES RECEIVED PT.AWAKE, NON-VERBAL, O G-TUBE FEEDING, NO RESIDUAL NOTED, F/C DRAINING OLYA URINE, BED IN LOCKED POSITION, SIDERAILSUPX2, CONTINUE TO MONITOR
[2019-11-29] MEDS: MEROPENEM 500 MG in IV NS 0.9% 100 ML IV SCH ×2 (05:09→16:26)
--- NOTE | 2019-11-29 06:00 | NUR ---
RN NOTES NOTICED WHEN TURNING THE PT, WHILE CLEANING THE PT. G-TUBE SITE IS LEAKING, CHECKED THE RESIDUAL, ONLY 30ML, CHARGE NURSE MADE AWARE AND STOPPED THE FEEDING,
--- NOTE | 2019-11-29 06:48 | NUR ---
RN NOTES AWAKE, FEEDING STILL OFF, DAYSHIFT CHARGE NURSE MADE AWARE , NOT IN DISTRES, NO PAIN NOTED, PT. NEEDS ATTENDED
--- NOTE | 2019-11-29 07:23 | NUR ---
MS/RN OPENING NOTES RECEIVED PATIENT ON BED. PATIENT IN NO APPARENT RESPIRATORY DISTRESS NOTED. PATIENT NO SIGN AND SYMPTOM OF PAIN NOTED. WILL CONTINUE TO MONITOR.
[2019-11-29] MEDS: SUCRALFATE 1 G TABLET GT SCH ×4 (07:34→21:16)
[2019-11-29] MEDS: LEVOTHYROXINE SODIUM 50 MCG TABLET PO SCH (07:34)
[2019-11-29 08:00] VITALS: BP 111/40
[2019-11-29] MEDS: PANTOPRAZOLE 40 MG/PACK PACK GT SCH ×2 (08:13→20:34)
[2019-11-29] MEDS: ZINC SULFATE 220 MG CAPSULE GT SCH (08:13)
[2019-11-29] MEDS: HYDROCODONE/APAP 5/325MG TABLET GT SCH (08:13)
[2019-11-29 08:38] LABS: BASOPHILS # (AUTO) 0.1 /CMM (0.0-0.2); BASOPHILS % (AUTO) 0.6 % (0.0-2.0); EOSINOPHILS % (AUTO) 1.7 % (0.0-6.0); HEMATOCRIT 26 % (33-45); HEMOGLOBIN 8.1 g/dL (11.5-14.8); LYMPHOCYTES # (AUTO) 1.9 /CMM (0.8-4.8); LYMPHOCYTES % (AUTO) 10.2 % (20.0-44.0); MEAN CORPUSCULAR HGB CONC 31 g/dl (31.0-36.0); MEAN CORPUSCULAR VOLUME 92 fL (82-100); MONOCYTES % (AUTO) 5.3 % (2.0-12.0); NEUTROPHILS # (AUTO) 15.2 /CMM (1.8-8.9); NEUTROPHILS % (AUTO) 82.2 % (43.0-81.0); PLATELET COUNT (AUTO) 395 /CMM (150-450); WHITE BLOOD COUNT (AUTO) 18.5 K/uL (4.3-11.0)
[2019-11-29 08:47] LABS: CALCIUM, SERUM 7.5 mg/dL (8.5-10.1); CREATININE 2.1 mg/dL (0.6-1.3); POTASSIUM 4.3 mmol/L (3.5-5.1)
[2019-11-29] MEDS: DAKINS QUARTER STRENGTH (0.125%) 480 ML BOTTLE TOP SCH (08:58)
[2019-11-29] MEDS: CLOTRIMAZOLE 1% 15 GM TUBE TP SCH ×2 (08:58→16:27)
--- NOTE | 2019-11-29 08:59 | NUR ---
MS/RN NOTES CLAUS FELDER (EXCELLENCE SPECIALIST) IS AWARE THAT PATIENT GT FEEDING SITE IS LEAKING, PER CLAUS FELDER IS OKAY TO GIVE MEDICATION VIA GT. BP 111/40 P 64, AMLODIPINE 10MG 1 TAB VIA GT IS WITH HELD. WILL CONTINUE TO MONITOR.
[2019-11-29] MEDS: AMLODIPINE BESYLATE 10 MG TABLET GT SCH (09:00)
[2019-11-29 10:00] LABS: LYMPHOCYTES % (MANUAL) 6 % (16-48); MONOCYTES % (MANUAL) 1 % (0-11.0); NEUTROPHILS % (MANUAL) 93 (42-76)
[2019-11-29] MEDS ORDERED: DIATR MEGLU/DIATRIZOATE SODIUM 30 ML BOTTLE (GASTROGRAPHIN) ONE (10:56)
[2019-11-29] MEDS ORDERED: IV NS 0.9% 250 ML IV ONE (10:56)
[2019-11-29] MEDS ORDERED: IOHEXOL-300 100 ML VIAL IV ONE (10:56)
[2019-11-29] MEDS ORDERED: CT SWABBABLE VALVE TRANS SET 1 EA INFUS.SET MC ONE (10:57)
--- NOTE | 2019-11-29 13:36 | NUR ---
MS/RN NOTES CT ABDOMEN PELVIS WITH CONTRAST RESULT MD IS AWARE AND ORDER NOT TO USE GT FEEDING UNTIL SEEN BY GASTROENTEROLOGY.
[2019-11-29 16:00] VITALS: BP 80/36
[2019-11-29] MEDS: FLUCONAZOLE IN NS 100 MG in PREMIX 1 EA IV SCH ×2 (17:43)
[2019-11-29 18:19] LABS: *SPE A/G RATIO 0.5 (0.7-1.7); *SPE ALBUMIN 1.2 g/dL (2.9-4.4); *SPE ALPHA-1-GLOBULIN 0.4 g/dL (0.0-0.4); *SPE ALPHA-2-GLOBULIN 0.8 g/dL (0.4-1.0); *SPE BETA GLOBULIN 0.7 g/dL (0.7-1.3); *SPE GLOBULIN, TOTAL 2.5 g/dL (2.2-3.9); *SPE M-SPIKE Not Observed g/dL (Not Observed); *SPEGAMMA GLOBULIN 0.6 g/dL (0.4-1.8)
[2019-11-29] MEDS: VANCOMYCIN 500 MG in IV D5W 100 ML IV PRN (18:42)
--- NOTE | 2019-11-29 18:52 | NUR ---
MS/RN CLOSING NOTES PATIENT IS IN BED. NONVERBAL, OPENS EYES. ON OXYGEN 2L/MIN VIA NASAL CANNULA WILL TOLERATED. RESPIRATIONS ARE EVEN AND UNLABORED. NO RESPIRATORY DISTRESS NOTED. SEEN AND EXAMINED BY MD WITH ORDERS MADE AND CARRIED OUT. ALL DUE MEDICATION WAS GIVEN. HEMODIALYSIS WAS DONE 1300 ML OUTPUT. PATIENT GT FEEDING IS WITH HELD.SAFETY PRECAUTION IS IN PLACED. DRESSING CHANGED. BED IN LOWEST POSITION AND LOCKED. SIDE RAILS UP X2. HOB ELEVATED IN HIGH FOWLERS. CALL LIGHT WITHIN REACH. WILL ENDORSED TO FAMILY NURSE FOR PENELOPE.
--- NOTE | 2019-11-29 19:20 | NUR ---
RN yuesurruben opening notes Pt is resting in bed comfortably. Pt is non verbal and able to open eyes. Respiration is normal in 2 L NC. No SOB. No S/S of distress noted. R chest wall permacath is clean and intact. L upperarm piccline is clean, intact and patent. Per am nurse Pt had HD today with output 1300 ml. Noted g-tube is held because was leaking, applied gauze and abd. pad. Monteiro cath is intact, patent and noted no urine. Safety precautions is maintained. Bed at low position, brakes locked, side rails upX3, HOB elevated, and call light is within reach. Will continue to monitor.
[2019-11-29 20:00] VITALS: BP 98/48
--- NOTE | 2019-11-29 20:35 | NUR ---
RN medsur notes Hold protonix because Pt g-tube was leaking. Gtube is covered with gauze and abd. pad. MD is aware. Charge nurse is aware and informed. Will continue to monitor.
--- NOTE | 2019-11-29 21:17 | NUR ---
RN medsurg notes Held carafate due to gtube was leaking. MD is aware. Charge nurse is aware and informed. Will continue to monitor.
[2019-11-30] MEDS: MEROPENEM 500 MG in IV NS 0.9% 100 ML IV SCH ×2 (04:00→16:33)
--- NOTE | 2019-11-30 04:00 | NUR ---
CAREY turnerkaye notes Wound care provided as ordered. Pt tolerated activity well. Will continue to monitor.
--- NOTE | 2019-11-30 06:50 | NUR ---
RN medsurruben closing notes Pt is resting in bed comfortably. Pt is non verbal and able to open eyes. Respiration is normal in 2 L NC. No SOB. No S/S of distress noted. VS is stable. Afebrile. R chest wall permacath is clean and intact. L upperarm piccline is clean, intact and patent. Monteiro cath is intact, and draining urine 50 ml. Gtube feeding is held due to leaking. Kept Pt clean, dry and comfortable. All needs met and attended. Safety precautions is maintained. Bed at low position, brakes locked, side rails upX3, HOB elevated, and call light is within reach. Will endorse to morning nurse for PENELOPE.
[2019-11-30] MEDS: SUCRALFATE 1 G TABLET GT SCH ×4 (07:30→21:01)
[2019-11-30] MEDS: LEVOTHYROXINE SODIUM 50 MCG TABLET PO SCH (07:30)
--- NOTE | 2019-11-30 07:30 | NUR ---
MS/RN OPENING NOTE Received patient in bed, non-verbal, responsive to verbal and tactile stimulation by eye opening. Breathing even and non-labored on 2L oxygen via NC. No respiratory or cardiac distress noted. PICC line access noted on DOMINIQUE, patent and intact, and flushing well on one port. R CW HD cath in place with clean dressing. G-tube in place, covered with abdominal pad since it is leaking, notified MD. Held g-tube feeding and meds for now until MD assesses site. Wound dressings remain C/D/I, will continue to monitor. Fall precautions maintained. Will continue with current plan of care.
[2019-11-30] MEDS: HYDROCODONE/APAP 5/325MG TABLET GT SCH (08:40)
[2019-11-30] MEDS: AMLODIPINE BESYLATE 10 MG TABLET GT SCH (08:40)
[2019-11-30] MEDS: ZINC SULFATE 220 MG CAPSULE GT SCH (08:41)
[2019-11-30] MEDS: PANTOPRAZOLE 40 MG/PACK PACK GT SCH ×2 (08:41→20:21)
--- NOTE | 2019-11-30 08:41 | NUR ---
MS/RN NOTE HELD AM MEDS SINCE G-TUBE IS LEAKING AND PT IS NPO.
--- NOTE | 2019-11-30 09:00 | NUR ---
MS/RN NOTE Notified Dr. Stewart regarding G-tube leak, ELIDIA Patel also aware.
[2019-11-30] MEDS: CLOTRIMAZOLE 1% 15 GM TUBE TP SCH ×2 (09:43→16:59)
[2019-11-30] MEDS: DAKINS QUARTER STRENGTH (0.125%) 480 ML BOTTLE TOP SCH (09:44)
--- NOTE | 2019-11-30 12:00 | NUR ---
MS/RN NOTE HELD SUCRALFATE IN THE AFTERNOON, G-TUBE LEAKING.
[2019-11-30 13:00] LABS: BASOPHILS % (AUTO) 0.3 % (0.0-2.0); EOSINOPHILS % (AUTO) 0.9 % (0.0-6.0); HEMATOCRIT 28 % (33-45); HEMOGLOBIN 8.7 g/dL (11.5-14.8); LYMPHOCYTES # (AUTO) 1.5 /CMM (0.8-4.8); LYMPHOCYTES % (AUTO) 9.2 % (20.0-44.0); MEAN CORPUSCULAR HGB CONC 31 g/dl (31.0-36.0); MEAN CORPUSCULAR VOLUME 91 fL (82-100); MONOCYTES # (AUTO) 0.7 /CMM (0.1-1.30); MONOCYTES % (AUTO) 4.4 % (2.0-12.0); NEUTROPHILS # (AUTO) 13.5 /CMM (1.8-8.9); NEUTROPHILS % (AUTO) 85.2 % (43.0-81.0); PLATELET COUNT (AUTO) 343 /CMM (150-450); RED BLOOD CELL COUNT(AUTO) 3.09 MIL/uL (4.0-5.2); WHITE BLOOD COUNT (AUTO) 15.9 K/uL (4.3-11.0)
[2019-11-30 13:09] LABS: CALCIUM, SERUM 7.9 mg/dL (8.5-10.1); CREATININE 1.8 mg/dL (0.6-1.3); POTASSIUM 4.4 mmol/L (3.5-5.1)
--- NOTE | 2019-11-30 17:00 | NUR ---
MS/RN NOTE HELD SUCRALFATE AT DINNER TIME, G-TUBE LEAKING.
[2019-11-30] MEDS: LINEZOLID RTU BAG 600 MG in PREMIX 1 EA IV SCH (17:18)
--- NOTE | 2019-11-30 19:00 | NUR ---
MS/RN OPENING NOTE Patient remained stable in bed, non-verbal, responsive to verbal and tactile stimulation by eye opening. Breathing even and non-labored on 2L oxygen via NC, no SOB noted. No cardiac distress noted. PICC line access noted on DOMINIQUE, patent and intact, and flushing well on one port. G-tube in place with abdominal pad which remained intact. Held g-tube feeding and meds for now until MD assesses site. Wound dressings done. Bed locked to its lowest position, bed alarm on, call light within reach. Fall and aspiration precautions maintained. Will endorse to music publicist nurse. Addendum: 11/30/19 at 1945 by KRISTEN RAMSEY RN CLOSING NOTE
--- NOTE | 2019-11-30 19:00 | NUR ---
MS/RN CLOSING NOTE BELOW
[2019-11-30] MEDS: FLUCONAZOLE IN NS 100 MG in PREMIX 1 EA IV SCH ×2 (19:21)
--- NOTE | 2019-11-30 19:28 | NUR ---
MS/RN OPENING NOTES RECEIVED PATIENT IN BED, NON VERBAL BUT CAN MAKE SOME SOUNDS, OPENS EYES, ON OXYGEN VIA NC AT 2 LITER, RESPIRATIONS EVEN AND UNLABORED, ON RIDER DRAINING SCANTY DARK URINE, GTUBE ON HOLD AND WAS REPORTED TO GI FOR LEAKING. PATIENT REQUIRE EXTENSIVE ASSISTANCE WITH EDEMA AND WOUND IN SACRAL AREA REQUIRE WOUND TREATMENT, DOMINIQUE PICC LINE, ONE LUMEN ABLE TO FLUSH AND PATENT, HAD HEMODIALYSIS YESTERDAY RIGHT SUBCLAVIAN CATHETER, ON IV ANTIBIOTIC TREATMENT. TO MONITOR ANY CHANGES, TO ADMINISTER DIFLUCAN SOON SOME ANTIBIOTIC INFUSED. BED LOCKED, CALL LIGHTS WITHIN REACH. WILL MONITOR.
[2019-11-30 20:00] VITALS: BP 91/49
--- NOTE | 2019-11-30 20:21 | NUR ---
MS/RN NOTES BLOOD PRESSURE READING UNABLE TO OBTAIN BLE AND JACOBO HAS ANASARCA, TO RECHECK AND FOLLOW UP WITH MD.
--- NOTE | 2019-11-30 20:53 | NUR ---
MS/RN NOTES PATIENT GTUBE SITE DRESSING SOILED, CLEANSE SITE AND NEW ABDOMINAL DRESSING PLACED IN ABDOMEN. TO MONITOR.
[2019-12-01] MEDS: MEROPENEM 500 MG in IV NS 0.9% 100 ML IV SCH ×2 (04:03→16:16)
--- NOTE | 2019-12-01 06:18 | NUR ---
311-1MS/RN NOTES PATIENT ABLE TO SLEEP DURING THE NIGHTS, ATTENDED ALL NEEDS, KEPT COMFORTABLE. MONITORED FOR ANY CHANGES, BED LOCKED, CALL LIGTHS WITHIN REACH, ON OXYGEN VIA NC. IV SITE ON LUE FLUSHED AND PATETN WITH ONE LUMEN, GTUBE SITE DRESSING KEPT DRY AND INTACT, HELD FEEDING DUE TO LEAKING, MD MADE AWARE REGARDING CONCERNS IN BP UNABLE TO OBTAIN. WILL ENDORSE TO AM RN FOR PENELOPE.
[2019-12-01 07:29] LABS: CALCIUM, SERUM 7.7 mg/dL (8.5-10.1); CREATININE 1.9 mg/dL (0.6-1.3); POTASSIUM 4.3 mmol/L (3.5-5.1)
[2019-12-01] MEDS: LEVOTHYROXINE SODIUM 50 MCG TABLET PO SCH (07:30)
[2019-12-01] MEDS: SUCRALFATE 1 G TABLET GT SCH ×4 (07:30→21:06)
--- NOTE | 2019-12-01 07:30 | NUR ---
MS/RN OPENING NOTE Received patient resting in bed, non-verbal, responds by moaning with tactile and verbal stimulation. No s/s of pain/discomfort noted at this time. Breathing even and non-labored on 2L via NC, no SOB noted. No respiratory or cardiac distress noted. PICC line access noted on DOMINIQUE, patent and intact on one lumen, and flushing well. G-tube in place, with abdominal dressing. Held feeding and meds due to leakage, MD aware. Wound dressings remain C/D/I. Bed locked to its lowest position, bed alarm on, side rails up, call light in reach. Will continue to monitor pt for any changes of condition.
[2019-12-01 07:48] LABS: BASOPHILS % (AUTO) 0.1 % (0.0-2.0); HEMATOCRIT 27 % (33-45); HEMOGLOBIN 8.1 g/dL (11.5-14.8); LYMPHOCYTES # (AUTO) 1.8 /CMM (0.8-4.8); LYMPHOCYTES % (AUTO) 10.7 % (20.0-44.0); MEAN CORPUSCULAR HGB CONC 31 g/dl (31.0-36.0); MEAN CORPUSCULAR VOLUME 92 fL (82-100); MONOCYTES # (AUTO) 0.8 /CMM (0.1-1.30); MONOCYTES % (AUTO) 4.6 % (2.0-12.0); NEUTROPHILS # (AUTO) 13.7 /CMM (1.8-8.9); NEUTROPHILS % (AUTO) 83.6 % (43.0-81.0); PLATELET COUNT (AUTO) 354 /CMM (150-450); RED BLOOD CELL COUNT(AUTO) 2.88 MIL/uL (4.0-5.2); WHITE BLOOD COUNT (AUTO) 16.4 K/uL (4.3-11.0)
[2019-12-01 08:00] VITALS: BP 101/33
[2019-12-01] MEDS: AMLODIPINE BESYLATE 10 MG TABLET GT SCH (08:38)
[2019-12-01] MEDS: HYDROCODONE/APAP 5/325MG TABLET GT SCH (08:38)
[2019-12-01] MEDS: PANTOPRAZOLE 40 MG/PACK PACK GT SCH ×2 (08:38→21:06)
[2019-12-01] MEDS: ZINC SULFATE 220 MG CAPSULE GT SCH (08:39)
[2019-12-01] MEDS: LINEZOLID RTU BAG 600 MG in PREMIX 1 EA IV SCH ×2 (08:41→22:50)
--- NOTE | 2019-12-01 09:03 | NUR ---
MS/RN NOTE Jorge FISH ROD MAKER at bedside, ordered D50 since pt's blood sugar is 58. Order carried out. Will continue to monitor patient
[2019-12-01] MEDS: DEXTROSE 50%-WATER 50 ML DISP.SYRIN IVP PRN (09:12)
--- NOTE | 2019-12-01 09:12 | NUR ---
MS/RN NOTE Administered Dextrose 50% injection IVP, slow push. Will continue to monitor patient's blood sugar and any s/s of hypo/hyperglycemia.
--- NOTE | 2019-12-01 10:15 | NUR ---
MS/RN NOTE Per Jorge Wu NP, okay to start tube feeding Nephro @ 45 ml/hr x 24 hours + Prostat BID. States he spoke with Dr. Arora and Dr. Stewart, leakage is normal since there's a fistula present on site that has to drain. Will maintain infection control on the site and keep skin clean. Addendum: 12/01/19 at 1030 by KRISTEN RAMSEY RN Orders carried out.
[2019-12-01] MEDS: DAKINS QUARTER STRENGTH (0.125%) 480 ML BOTTLE TOP SCH (10:29)
[2019-12-01] MEDS: CLOTRIMAZOLE 1% 15 GM TUBE TP SCH ×2 (10:30→16:17)
[2019-12-01 10:36] LABS: BAND % (MANUAL) 2 % (0.0-5.0); EOSINOPHILS % (MANUAL) 2 % (0-4); LYMPHOCYTES % (MANUAL) 8 % (16-48); MONOCYTES % (MANUAL) 4 % (0-11.0); MYELOCYTES % 6 % (0-0); NEUTROPHILS % (MANUAL) 78 (42-76)
--- NOTE | 2019-12-01 10:50 | NUR ---
MS/RN NOTE 1 HR POST D50 ADMIN, BS 86. NO S/S OF ACUTE DISTRESS NOTED. WILL CONT TO MONITOR
[2019-12-01] MEDS: NEPRO 1,000 ML BOTTLE GT PRN (10:59)
[2019-12-01] MEDS: PROSOURCE / PROSTAT (PYXIS) 30 ML UDC GT SCH (16:18)
[2019-12-01] MEDS ORDERED: COLISTIMETHATE SODIUM 75 MG in IV NS 0.9% 50 ML IV SCH (17:00)
[2019-12-01] MEDS: COLISTIMETHATE SODIUM 100 MG in IV NS 0.9% 50 ML IV SCH (18:41)
[2019-12-01] MEDS: BLOOD SUGAR DIAGNOSTIC 1 EACH STRIP IN SCH (18:41)
--- NOTE | 2019-12-01 19:00 | NUR ---
MS/RN CLOSING NOTE Patient remains non-verbal, responsive to verbal and tactile stimulation by eye opening. Breathing even and non-labored on 2L oxygen via NC, no SOB noted. No cardiac distress noted. PICC line access noted on DOMINIQUE, patent and intact, and flushing well on one port. No s/s of infiltration, infection, or bleeding noted. G-tube in place with abdominal pad dressing. Running Nephro @ 45ml/hr, no gastric residual noted. Wound dressings and photos done. Fall and aspiration precautions maintained. Will endorse to caustic cresylate shift superintendent nurse.
[2019-12-01] MEDS: FLUCONAZOLE IN NS 100 MG in PREMIX 1 EA IV SCH ×2 (19:12)
--- NOTE | 2019-12-01 19:30 | NUR ---
MS/RN OPENING NOTES: RECEIVED REPORT FROM CAREY PETERSON. RECEIVED PT IN BED NON VERBAL, OPENS EYES, MOANS. PALE IN COLOR UPON INSPECTION. RIDER CATH NOTED DRAINING DARK COLOR RED URINE. TUBE FEEDING INFUSING AT 45MLS/HR. TOLERATING WELL, ALL WOUND PICTURES TAKEN FOR MONDAY NIGHT PER HOSPITAL PROTOCOL. DOMINIQUE PICC LINE 2 PORTS NOTED. ONE PORT IS CLOGGED PER DAY SHIFT RN. HD RIGHT CW PERMA CATH NOTED. SAFETY MEASURES IN PLACE. BED IN LOW, LOCKED POSITION WITH SR UP X2. CALL LIGHT WITHIN REACH. WILL CONTINUE TO MONITOR ACCORDINGLY THROUGHOUT THE SHIFT.
[2019-12-01 20:00] VITALS: BP 87/30
[2019-12-01 20:23] VITALS: BP 80/30
--- NOTE | 2019-12-01 20:26 | NUR ---
MS/RN NOTES: CONTACTED DR. ESPINOZA REGARDING PATIENT'S LOW BP. CHARGE NURSE AWARE. WILL CONTINUE TO MONITOR PATIENT.
[2019-12-01 20:40] VITALS: BP 96/26
--- NOTE | 2019-12-01 20:51 | NUR ---
MS/RN NOTES: DR. ESPINOZA ORDERED 500 CC NS BOLUS. NOW INFUSING. WILL CONTINUE MONITOR PT ACCORDINGLY.
[2019-12-01] MEDS ORDERED: IV NS 0.9% 500 ML IV ONE (21:00)
[2019-12-01] MEDS: METRONIDAZOLE 500MG/ NS 100ML 500 MG in PREMIX 1 EA IV SCH (21:49)
[2019-12-01 22:00] VITALS: BP 95/32
[2019-12-02] VITALS (11 sets, daily range): BP systolic 88–101; BP diastolic 26–61
[2019-12-02] MEDS: BLOOD SUGAR DIAGNOSTIC 1 EACH STRIP IN SCH ×4 (00:09→17:45)
[2019-12-02] MEDS: METRONIDAZOLE 500MG/ NS 100ML 500 MG in PREMIX 1 EA IV SCH ×2 (04:38→13:49)
--- NOTE | 2019-12-02 04:52 | NUR ---
MS/RN NOTES: VS TAKEN AND MONITORED CLOSELY. BP IS NOW 101/61 HR: 70. PT IS STABLE FOR NOW. WILL KEEP MONITORING ACCORDINGLY.
[2019-12-02 07:15] LABS: BASOPHILS # (AUTO) 0.1 /CMM (0.0-0.2); BASOPHILS % (AUTO) 0.5 % (0.0-2.0); EOSINOPHILS % (AUTO) 1.6 % (0.0-6.0); HEMATOCRIT 23 % (33-45); HEMOGLOBIN 7.2 g/dL (11.5-14.8); LYMPHOCYTES # (AUTO) 1.7 /CMM (0.8-4.8); LYMPHOCYTES % (AUTO) 12.1 % (20.0-44.0); MEAN CORPUSCULAR HGB CONC 31 g/dl (31.0-36.0); MEAN CORPUSCULAR VOLUME 91 fL (82-100); MONOCYTES # (AUTO) 0.7 /CMM (0.1-1.30); MONOCYTES % (AUTO) 5.3 % (2.0-12.0); NEUTROPHILS # (AUTO) 11.2 /CMM (1.8-8.9); NEUTROPHILS % (AUTO) 80.5 % (43.0-81.0); PLATELET COUNT (AUTO) 311 /CMM (150-450); RED BLOOD CELL COUNT(AUTO) 2.53 MIL/uL (4.0-5.2); WHITE BLOOD COUNT (AUTO) 13.9 K/uL (4.3-11.0)
--- NOTE | 2019-12-02 07:20 | NUR ---
MS/RN CLOSING NOTES: PT. IN BED NON VERBAL, OPENS EYES, MOANS. NO SIGNIFICANT CHANGES IN CONDITION. RIDER CATH REMAINS INTACT. PT ANURIC. TUBE FEEDING INFUSING AT 45MLS/HR. TOLERATED WELL, NO RESIDUALS NOTED. DOMINIQUE PICC LINE 2 PORTS NOTED. HD RIGHT CW PERMA CATH NOTED. SAFETY MEASURES IN PLACE. BED IN LOW, LOCKED POSITION WITH SR UP X2. CALL LIGHT WITHIN REACH. WILL ENDORSE TO DAY SHIFT FOR PENELOPE.
--- NOTE | 2019-12-02 07:30 | NUR ---
RN OPENING NOTES RECEIVED PT IN BED NON VERBAL, OPENS EYES, MOANING AND CRYING. PALE IN COLOR UPON INSPECTION. NO CARDIAC OR RESPIRATORY DISTRESS NOTED. NO SOB NOTED. SATURATING WELL ON 2L OF O2 VIA NC. RIDER CATH NOTED, NO OUTPUT AT THIS TIME YET. PER THREADING MACHINE TENDER NURSE PT IS ANURIC. GTUBE INTACT AND PATENT AND FLUSHING WELL. FLUSHED WITH H20. TUBE FEEDING NOTED INFUSING NEPHRO 45MLS/HR. TOLERATING WELL, AIV ACCESS NOTED ON DOMINIQUE PICC LINE 2 PORTS NOTED. ONE PORT IS CLOGGED. HD RIGHT CW PERMA CATH NOTED. SAFETY MEASURES IN PLACE. BED IN LOW, LOCKED POSITION WITH SR UP X2. CALL LIGHT WITHIN REACH. WILL CONTINUE TO MONITOR ACCORDINGLY THROUGHOUT THE SHIFT.
[2019-12-02] MEDS: MORPHINE SULFATE INJ 2 MG/ML DISP.SYRIN IV PRN (07:54)
[2019-12-02 08:11] LABS: CALCIUM, SERUM 7.8 mg/dL (8.5-10.1); POTASSIUM 3.9 mmol/L (3.5-5.1)
[2019-12-02] MEDS: PANTOPRAZOLE 40 MG/PACK PACK GT SCH ×2 (08:20→21:42)
[2019-12-02] MEDS: LEVOTHYROXINE SODIUM 50 MCG TABLET PO SCH (08:20)
[2019-12-02] MEDS: SUCRALFATE 1 G TABLET GT SCH ×4 (08:20→21:42)
[2019-12-02] MEDS: ZINC SULFATE 220 MG CAPSULE GT SCH (08:21)
[2019-12-02] MEDS: PROSOURCE / PROSTAT (PYXIS) 30 ML UDC GT SCH ×2 (08:21→16:05)
[2019-12-02] MEDS: HYDROCODONE/APAP 5/325MG TABLET GT SCH ×2 (08:21→16:47)
[2019-12-02] MEDS: LINEZOLID RTU BAG 600 MG in PREMIX 1 EA IV SCH (08:25)
[2019-12-02] MEDS: DAKINS QUARTER STRENGTH (0.125%) 480 ML BOTTLE TOP SCH (08:27)
[2019-12-02] MEDS: CLOTRIMAZOLE 1% 15 GM TUBE TP SCH ×2 (08:27→16:06)
[2019-12-02 08:52] LABS: EOSINOPHILS % (MANUAL) 3 % (0-4); LYMPHOCYTES % (MANUAL) 11 % (16-48); MONOCYTES % (MANUAL) 2 % (0-11.0); NEUTROPHILS % (MANUAL) 84 (42-76)
--- NOTE | 2019-12-02 09:15 | NUR ---
BP CHECK BP CHECKED THIS AM. NOTED AT 91/44 HR OF 80.
--- NOTE | 2019-12-02 09:30 | NUR ---
SEEN BY HOSPITALIST CLAUS FELDER MADE AWARE OF PTS BP 91/44 HR OF 80. ALSO INFORMED HIM THAT PTS BP WAS ALSO LOW LAST NIGHT BUT WAS GIVEN 500ML BOLUS. PT IS A DIALYSIS PT. ALSO MADE CLAUS FERMENTATION OPERATOR AWARE OF PTS HGB LEVELS TRENDING DOWN AT 7.1. PER CLAUS, HE TAYE LOOK INTO IT.
[2019-12-02] MEDS ORDERED: IV NS 0.9% 500 ML IV ONE (17:00)
--- NOTE | 2019-12-02 17:14 | NUR ---
LOW BP BP STILL LOW. CLAUS RAYMOND MILL OPERATOR MADE AWARE THAT CURRENT BP IS AT 91/44, HR 60, MAP 51. PER CLAUS ADMINISTER 500ML NS BOLUS X1 NOW. WILL RE-CHECK BP ONCE INFUSION IS COMPLETED.
[2019-12-02] MEDS: FLUCONAZOLE IN NS 100 MG in PREMIX 1 EA IV SCH ×2 (17:45)
--- NOTE | 2019-12-02 18:00 | NUR ---
RECHECK BP NS BOLUS 500ML COMPLETED BP RECHECKED NOW NOTED AT 98/43 HR 65
[2019-12-02] MEDS: ALBUMIN 25% 25 GM in PREMIX 1 EA IV PRN (18:03)
--- NOTE | 2019-12-02 18:10 | NUR ---
DIALYSIS ALBUMIN INFUSED BY CHEMICAL PLANT OPERATOR EMILY.
--- NOTE | 2019-12-02 18:30 | NUR ---
DIALYSIS DIALYSIS NURSE BY BEDSIDE. PT CURRENT BEING DIALYZED.
[2019-12-02] MEDS: COLISTIMETHATE SODIUM 100 MG in IV NS 0.9% 50 ML IV SCH (18:32)
--- NOTE | 2019-12-02 18:50 | NUR ---
RN CLOSING NOTES PT IN BED NON VERBAL, OPENS EYES, MOANING AND CRYING. PALE IN COLOR UPON INSPECTION. NO CARDIAC OR RESPIRATORY DISTRESS NOTED. NO SOB NOTED. SATURATING WELL ON 2L OF O2 VIA NC. RIDER CATH NOTED, NO OUTPUT AT THIS TIME YET. PER ENVIRONMENTAL HEALTH TECHNOLOGIST NURSE PT IS ANURIC. GTUBE INTACT AND PATENT AND FLUSHING WELL. HOWEVER, ITS DRAINING. CLAUS RESTAURANT CREW MEMBER AWARE OF CURRENT DRAINAGE. TUBE FEEDING NOTED INFUSING NEPHRO 45MLS/HR. TOLERATING WELL, IV ACCESS NOTED ON DOMINIQUE PICC LINE 2 PORTS NOTED. ONE PORT IS CLOGGED. HD RIGHT CW PERMA CATH NOTED. PY CURRENTLY BEING DIALYZED. BP CONTINOUSLY MONITORED. SAFETY MEASURES IN PLACE. BED IN LOW, LOCKED POSITION WITH SR UP X2. CALL LIGHT WITHIN REACH. WILL CONTINUE TO MONITOR ACCORDINGLY THROUGHOUT THE SHIFT.
[2019-12-02 18:56] LABS: HEMOGLOBIN 6.8 g/dL (11.5-14.8)
--- NOTE | 2019-12-02 19:00 | NUR ---
[facility] CALLED, NOTIFIED ME THAT PTS HGB IS 6.8. PAGED NICOLE DEVLIN NP. AWAITING CALL BACK. BLOOD CONSENT ALREADYSIGNED AND COMPLETED IN THE CHART.
--- NOTE | 2019-12-02 19:04 | NUR ---
[facility] PER EPIC EXCHANGE. CLAUS IS NOT IN ANYMORE. DR. ESPINOZA WILL BE NOTIFIED. AWAITING CALL BACK. NIGHTSHIFT NURSE MADE AWARE.
--- NOTE | 2019-12-02 19:10 | NUR ---
RN medsurg opening notes Pt is resting in bed comfortably. Pt is non verbal and able to open eyes. Respiration is normal in 2 L NC. No SOB. No S/S of distress noted. R chest wall permacath is clean and intact. L upperarm piccline is clean, intact and patent. Pt is having dialysis with CAREY SCHMITT. Noted g-tube is leaking. is aware. On going gtube feeding nephro @ 45 ml/hr with 0 residual. Monteiro cath is intact, patent and noted no urine. Safety precautions is maintained. Bed at low position, brakes locked, side rails upX3, HOB elevated, and call light is within reach. Will continue to monitor.
--- NOTE | 2019-12-02 19:17 | NUR ---
HGB DR. ESPINOZA RESPONDED. ORDERED 1UNIT PRBC. LIGHTNING ROD INSTALLER NURSE MADE AWARE. 1 UNIT ORDERED.
--- NOTE | 2019-12-02 20:30 | NUR ---
CAREY gamboa notes Pt is finished with dialysis with output 1700 ml. BP is 95/41, pulse 68, resp 16, temp 97.5 and O2 sat is 97%. Pt tolerated well. Will continue to monitor.
--- NOTE | 2019-12-02 21:15 | NUR ---
RN medsurg notes Picked up blood to lab.
--- NOTE | 2019-12-02 21:30 | NUR ---
CAREY medsurg notes 1 unit PRBC (283ml) Blood transfusion starts. Blood consent is signed. Type and screen is done. PRBC blood is checked, verified and cosigned with CAREY Jordan. VS is checked. BP 88/26, pulse 70, respiration is 18, temp oral is 97.6. O2 sat is 100%. Will continue to monitor.
[2019-12-02] MEDS: METRONIDAZOLE 500 MG TABLET GT SCH (21:42)
--- NOTE | 2019-12-02 22:20 | NUR ---
RN medsurruben notes Called and spoke with donation specialist pharmacy [facility] regarding Pt's med Zyvox. Informed [facility] that will administered zyvox after blood tranfusion is done. Charge nurse is aware and informed. Will continue to monitor.
[2019-12-03 00:30] VITALS: BP 92/40
[2019-12-03] MEDS: BLOOD SUGAR DIAGNOSTIC 1 EACH STRIP IN SCH ×4 (00:43→16:59)
[2019-12-03 00:58] VITALS: BP 100/36
--- NOTE | 2019-12-03 01:02 | NUR ---
CAREY gamboa notes 1 unit of PRBC is transfused. BP 100/36, pulse 71, resp 18, o2 sat is 100%, temp 97.5. Pt tolerated well. No transfusion reaction noted. Will continue to monitor.
[2019-12-03] MEDS: LINEZOLID RTU BAG 600 MG in PREMIX 1 EA IV SCH ×3 (01:05→21:40)
[2019-12-03] MEDS: METRONIDAZOLE 500 MG TABLET GT SCH ×3 (04:07→21:39)
--- NOTE | 2019-12-03 04:30 | NUR ---
CAREY turnerkaye notes Wound care provided as ordered. Pt tolerated activity well. Will continue to monitor.
--- NOTE | 2019-12-03 06:40 | NUR ---
RN medsurg closing notes Pt is resting in bed comfortably. Pt is non verbal and able to open eyes. Respiration is normal in 2 L NC. No SOB. No S/S of distress noted. R chest wall permacath is clean and intact. L upperarm piccline is clean, intact and patent. On going gtube feeding nephro @ 45 ml/hr with 0 residual. Routine meds wre given as ordered including blood transfusion. Monteiro cath is intact, and patent. Wound care provided as ordered. Kept Pt clean, dry and comfortable. All needs met and attended. Safety precautions is maintained. Bed at low position, brakes locked, side rails upX3, HOB elevated, and call light is within reach. Will endorse to morning nurse for PENELOPE.
--- NOTE | 2019-12-03 07:30 | NUR ---
RN OPENING NOTES RECEIVED PT IN BED NON VERBAL, OPENS EYES, MOANING AND CRYING. PALE IN COLOR UPON INSPECTION. NO CARDIAC OR RESPIRATORY DISTRESS NOTED. NO SOB NOTED. SATURATING WELL ON 2L OF O2 VIA NC. RIDER CATH NOTED, GTUBE INTACT AND PATENT AND FLUSHING WELL. FLUSHED WITH H20. TUBE FEEDING NOTED INFUSING NEPHRO 45MLS/HR. TOLERATING WELL, IV ACCESS NOTED ON DOMINIQUE PICC LINE 2 PORTS NOTED. ONE PORT IS CLOGGED. HD RIGHT CW PERMA CATH NOTED. S/P HEMODIALYSIS YESTERDAY. SAFETY MEASURES IN PLACE. BED IN LOW, LOCKED POSITION WITH SR UP X2. CALL LIGHT WITHIN REACH. WILL CONTINUE TO MONITOR ACCORDINGLY THROUGHOUT THE SHIFT.
[2019-12-03 07:40] LABS: BASOPHILS % (AUTO) 0.2 % (0.0-2.0); EOSINOPHILS % (AUTO) 2.5 % (0.0-6.0); HEMATOCRIT 27 % (33-45); HEMOGLOBIN 8.7 g/dL (11.5-14.8); LYMPHOCYTES # (AUTO) 1.8 /CMM (0.8-4.8); LYMPHOCYTES % (AUTO) 14.6 % (20.0-44.0); MEAN CORPUSCULAR HGB CONC 33 g/dl (31.0-36.0); MEAN CORPUSCULAR VOLUME 90 fL (82-100); MONOCYTES # (AUTO) 0.8 /CMM (0.1-1.30); MONOCYTES % (AUTO) 6.5 % (2.0-12.0); NEUTROPHILS # (AUTO) 9.2 /CMM (1.8-8.9); NEUTROPHILS % (AUTO) 76.2 % (43.0-81.0); PLATELET COUNT (AUTO) 275 /CMM (150-450); RED BLOOD CELL COUNT(AUTO) 2.99 MIL/uL (4.0-5.2); WHITE BLOOD COUNT (AUTO) 12.1 K/uL (4.3-11.0)
[2019-12-03 07:46] LABS: CALCIUM, SERUM 8.1 mg/dL (8.5-10.1); CREATININE 1.8 mg/dL (0.6-1.3)
[2019-12-03 08:00] VITALS: BP 107/47
[2019-12-03] MEDS: ZINC SULFATE 220 MG CAPSULE GT SCH (08:11)
[2019-12-03] MEDS: PANTOPRAZOLE 40 MG/PACK PACK GT SCH ×2 (08:11→21:39)
[2019-12-03] MEDS: LEVOTHYROXINE SODIUM 50 MCG TABLET PO SCH (08:11)
[2019-12-03] MEDS: SUCRALFATE 1 G TABLET GT SCH ×4 (08:11→21:39)
[2019-12-03] MEDS: HYDROCODONE/APAP 5/325MG TABLET GT PRN ×2 (08:12→17:56)
[2019-12-03] MEDS: PROSOURCE / PROSTAT (PYXIS) 30 ML UDC GT SCH ×2 (08:12→16:29)
[2019-12-03] MEDS: DAKINS QUARTER STRENGTH (0.125%) 480 ML BOTTLE TOP SCH (08:18)
[2019-12-03] MEDS: CLOTRIMAZOLE 1% 15 GM TUBE TP SCH ×2 (08:19→16:29)
[2019-12-03] MEDS: MORPHINE SULFATE INJ 2 MG/ML DISP.SYRIN IV PRN (13:59)
--- NOTE | 2019-12-03 15:40 | NUR ---
PEG-TUBE LEAKAGE PT WAS NOTED WITH COPIOUS AMOUNT OF DRAINAGE, YELLOW IN COLOR OOZING OUT OF THE FEEDING TUBE STOMA SITE. CLAUS FELDER MADE AWARE. PER CLAUS, NOTIFY DR. ORTIZ. IN THE MEAN TIME FEEDING WAS HELD. THEN, DR. ORTIZ WAS CONTACTED AND PER DR. ORTIZ, "WE'VE TALKED ABOUT THIS BEFORE. DR. SNYDER SAW THE PT WELL ALREADY. CO CONTINUE THE FEEDING I'VE ORDERED."
[2019-12-03 16:00] VITALS: BP 97/45
[2019-12-03] MEDS: FLUCONAZOLE IN NS 100 MG in PREMIX 1 EA IV SCH ×2 (16:54)
[2019-12-03 17:10] VITALS: BP 100/45
[2019-12-03] MEDS: NEPRO 1,000 ML BOTTLE GT PRN (17:30)
[2019-12-03] MEDS: COLISTIMETHATE SODIUM 100 MG in IV NS 0.9% 50 ML IV SCH (18:21)
--- NOTE | 2019-12-03 18:24 | NUR ---
RN CLOSING NOTES PT IN BED NON VERBAL, OPENS EYES, MOANING AND CRYING. PALE IN COLOR UPON INSPECTION. NO CARDIAC OR RESPIRATORY DISTRESS NOTED. NO SOB NOTED. SATURATING WELL ON 2L OF O2 VIA NC. RIDER CATH NOTED, NO OUTPUT AT THIS TIME YET. PER TAPE CONTROL SKIN OR SPAR MILL OPERATOR NURSE PT IS ANURIC. GTUBE INTACT AND PATENT AND FLUSHING WELL. HOWEVER, ITS DRAINING PROFUSELY WITH YELLOW DRAINAGE, CLAUS FUNERAL PRE ARRANGEMENT SPECIALIST AWARE WELL DR. ORTIZ. PER DR. ORTIZ, CONTINUE WITH FEEDING. TUBE FEEDING NEPHRO INFUSING NEPHRO 45MLS/HR. TOLERATING WELL, IV ACCESS NOTED ON DOMINIQUE PICC LINE 2 PORTS NOTED. ONE PORT IS CLOGGED. HD RIGHT CW PERMA CATH NOTED. PALL NEEDS MET AND ATTENDED. WOUND CARE DONE. PRE-MEDICATED PRIOR TO WOUND TX. PT HAS MULTIPLE WOUNDS. ALL DUE MEDS ADMINISTERED. NO ASE NOTED. SAFETY MEASURES IN PLACE. BED IN LOW, LOCKED POSITION WITH SR UP X2. CALL LIGHT WITHIN REACH. WILL ENDORSE TO NEXT SHIFT.
--- NOTE | 2019-12-03 19:31 | NUR ---
RN OPENING NOTES PATIENT RECEIVED RESTING IN BED A/O X 0, OPENS EYES. PATIENT ON 2L OF O2 WITH BREATHING EVEN AND UNLABORED, NO SOB NOTED. NO SIGNS OF ACUTE DISTRESS. NO COMPLAINTS OF PAIN OR DISCOMFORT- NO FACIAL GRIMACING. RIDER NOTED AND IN PLACE. R CHEST WALL AND L UA PICC LINE NOTED AND IN PLACE. GTUBE FEEDING RUNNING NEPHRO @ 45 ML/HR. SAFETY PRECAUTIONS IN PLACE WITH BED IN LOWEST POSITION, CALL LIGHT WITHIN REACH, BREAKS ON, SIDE RAILS UP. WILL CONTINUE TO MONITOR THROUGHOUT THE NIGHT.
[2019-12-03 20:00] VITALS: BP 93/43
[2019-12-04] MEDS: BLOOD SUGAR DIAGNOSTIC 1 EACH STRIP IN SCH ×4 (00:13→17:44)
[2019-12-04] MEDS: METRONIDAZOLE 500 MG TABLET GT SCH ×3 (05:43→21:23)
--- NOTE | 2019-12-04 07:00 | NUR ---
RN CLOSING NOTES PATIENT RESTING IN BED A/O X 0, OPENS EYES AND MOANS. PATIENT ON 2L OF O2 WITH BREATHING EVEN AND UNLABORED, NO SOB NOTED. NO SIGNS OF ACUTE DISTRESS. NO COMPLAINTS OF PAIN OR DISCOMFORT- NO FACIAL GRIMACING. RIDER NOTED AND IN PLACE. R CHEST WALL AND L UA PICC LINE NOTED AND IN PLACE. GTUBE FEEDING RUNNING NEPHRO @ 45 ML/HR. SAFETY PRECAUTIONS IN PLACE WITH BED IN LOWEST POSITION, CALL LIGHT WITHIN REACH, BREAKS ON, SIDE RAILS UP. ALL NEEDS ATTENDED TO. WOUND CARE DONE. PATIENT KEPT CLEAN AND DRY. WILL ENDORSE TO ONCOMING SHIFT ABOUT PENELOPE.
[2019-12-04 07:13] LABS: BASOPHILS % (AUTO) 0.2 % (0.0-2.0); EOSINOPHILS % (AUTO) 2.2 % (0.0-6.0); HEMATOCRIT 27 % (33-45); HEMOGLOBIN 8.7 g/dL (11.5-14.8); LYMPHOCYTES # (AUTO) 1.6 /CMM (0.8-4.8); LYMPHOCYTES % (AUTO) 10.7 % (20.0-44.0); MEAN CORPUSCULAR HGB CONC 32 g/dl (31.0-36.0); MEAN CORPUSCULAR VOLUME 91 fL (82-100); MONOCYTES # (AUTO) 0.7 /CMM (0.1-1.30); MONOCYTES % (AUTO) 4.7 % (2.0-12.0); NEUTROPHILS % (AUTO) 82.2 % (43.0-81.0); PLATELET COUNT (AUTO) 222 /CMM (150-450); WHITE BLOOD COUNT (AUTO) 14.6 K/uL (4.3-11.0)
[2019-12-04 07:23] LABS: CALCIUM, SERUM 7.8 mg/dL (8.5-10.1); CREATININE 1.9 mg/dL (0.6-1.3); POTASSIUM 3.8 mmol/L (3.5-5.1)
--- NOTE | 2019-12-04 07:52 | NUR ---
MS/RN OPENING NOTES RECEIVED PATIENT ON BED. NO APPARENT RESPIRATORY DISTRESS NOTED. NO SIGN AND SYMPTOM OF PAIN NOTED. WILL CONTINUE TO MONITOR.
[2019-12-04 08:00] VITALS: BP 104/44
[2019-12-04] MEDS: ZINC SULFATE 220 MG CAPSULE GT SCH (08:14)
[2019-12-04] MEDS: HYDROCODONE/APAP 5/325MG TABLET GT SCH (08:15)
[2019-12-04] MEDS: LEVOTHYROXINE SODIUM 50 MCG TABLET PO SCH (08:15)
[2019-12-04] MEDS: PANTOPRAZOLE 40 MG/PACK PACK GT SCH ×2 (08:15→21:23)
[2019-12-04] MEDS: PROSOURCE / PROSTAT (PYXIS) 30 ML UDC GT SCH ×2 (08:15→16:43)
[2019-12-04] MEDS: SUCRALFATE 1 G TABLET GT SCH ×4 (08:15→21:24)
[2019-12-04] MEDS: DAKINS QUARTER STRENGTH (0.125%) 480 ML BOTTLE TOP SCH (08:16)
[2019-12-04] MEDS: CLOTRIMAZOLE 1% 15 GM TUBE TP SCH ×2 (08:16→16:43)
[2019-12-04] MEDS: LINEZOLID RTU BAG 600 MG in PREMIX 1 EA IV SCH ×2 (08:18→21:27)
[2019-12-04 10:01] LABS: EOSINOPHILS % (MANUAL) 2 % (0-4); LYMPHOCYTES % (MANUAL) 6 % (16-48); MONOCYTES % (MANUAL) 8 % (0-11.0); NEUTROPHILS % (MANUAL) 84 (42-76)
[2019-12-04 16:00] VITALS: BP 85/30
[2019-12-04] MEDS: FLUCONAZOLE IN NS 100 MG in PREMIX 1 EA IV SCH ×4 (17:49→17:57)
[2019-12-04] MEDS: COLISTIMETHATE SODIUM 100 MG in IV NS 0.9% 50 ML IV SCH (17:53)
--- NOTE | 2019-12-04 18:56 | NUR ---
MS/RN CLOSING NOTES PATIENT IS ON BED, OPENS EYES. PATIENT ON 2L OF O2 WITH BREATHING EVEN AND UNLABORED, PATIENT IN NO APPARENT RESPIRATORY DISTRESS NOTED. NO SIGN AND SYMPTOM OF PAIN AT THIS TIME. GTUBE FEEDING IN PLACED AT THE PRESCRIBED SETTING, NEPHRO @ 45 ML/HR. SEEN AND EXAMINED BY MD WITH ORDERS MADE AND CARRIED OUT. ALL DUE MEDICATION WAS GIVEN. SAFETY PRECAUTIONS IN PLACE WITH BED IN LOWEST POSITION, CALL LIGHT WITHIN REACH, BREAKS ON, SIDE RAILS UP. GT TUBE IS OFF DUE TO RESIDUAL OF 70 ML. WILL ENDORSED TO GENERAL MANAGER FARM FOR PENELOPE.
[2019-12-04 20:00] VITALS: BP 91/45
--- NOTE | 2019-12-04 20:27 | NUR ---
MS/TELE/RN DURING INITIAL SHIFT ROUNDING AT 1930 PATIENT WAS ON EYES OPEN, NON VERBAL, APPEAR COMFORTABLE, NO SIGNS OF DISTRESS NOTED, G TUBE RESIDUAL WAS ZERO, RESTARTED G TUBE FEEDING, HOB ELEVATED, WILL MONITOR.
[2019-12-04] MEDS: NEPRO 1,000 ML BOTTLE GT PRN (21:44)
[2019-12-05] MEDS: BLOOD SUGAR DIAGNOSTIC 1 EACH STRIP IN SCH ×5 (00:34→23:36)
[2019-12-05] MEDS: METRONIDAZOLE 500 MG TABLET GT SCH ×3 (06:00→20:49)
--- NOTE | 2019-12-05 06:19 | NUR ---
MS/TELE/RN PATIENT APPEAR SLEEPING, APPEAR COMFORTABLE, NO SIGNS OF DISTRESS NOTED, HOB ELEVATED, G TUBE FEEDING INFUSING, NO RESIDUAL NOTED, HOB ELEVATED, ALL NEEDS ATTENDED AT THIS TIME, WILL CONTINUE TO MONITOR.
[2019-12-05 06:37] LABS: BASOPHILS # (AUTO) 0.1 /CMM (0.0-0.2); BASOPHILS % (AUTO) 0.3 % (0.0-2.0); EOSINOPHILS % (AUTO) 2.9 % (0.0-6.0); HEMATOCRIT 24 % (33-45); HEMOGLOBIN 7.8 g/dL (11.5-14.8); LYMPHOCYTES # (AUTO) 1.9 /CMM (0.8-4.8); LYMPHOCYTES % (AUTO) 12.2 % (20.0-44.0); MEAN CORPUSCULAR HGB CONC 32 g/dl (31.0-36.0); MEAN CORPUSCULAR VOLUME 91 fL (82-100); MONOCYTES # (AUTO) 0.7 /CMM (0.1-1.30); MONOCYTES % (AUTO) 4.2 % (2.0-12.0); NEUTROPHILS # (AUTO) 12.8 /CMM (1.8-8.9); NEUTROPHILS % (AUTO) 80.4 % (43.0-81.0); PLATELET COUNT (AUTO) 169 /CMM (150-450); RED BLOOD CELL COUNT(AUTO) 2.68 MIL/uL (4.0-5.2); WHITE BLOOD COUNT (AUTO) 15.9 K/uL (4.3-11.0)
[2019-12-05 07:01] LABS: CALCIUM, SERUM 7.5 mg/dL (8.5-10.1); CREATININE 1.6 mg/dL (0.6-1.3); POTASSIUM 3.5 mmol/L (3.5-5.1)
--- NOTE | 2019-12-05 07:29 | NUR ---
MS RN NOTES PATIENT RECEIVED IN BED SLEEPING COMFORTABLY WITH NO SIGNS OF DISTRESS. ON NASAL CANNULA 2L, WITH NO RESPIRATORY DISTRESS WITH EVEN NON-LABORED BREATHING, AND NO SOB NOTED. OPENS EYES WITH LIGHT TOUCH. PATIENT IV ACCESS INTACT AND PATENT ON LEFT UPPER ARM. G-TUBE FEEDING IN PLACE INFUSING NEPRO 45ml/hr NO RESIDUAL NOTED AT THIS TIME, LEAKING FROM G-TUBE SITE PRESENT. RIDER CATHETER INTACT AND IN PLACE. SAFETY PRECAUTIONS IMPLEMENTED WITH BED LOCKED, BED IN THE LOWEST POSITION, BED ALARM ON, BILATERAL SIDE RAILS UP, AND CALL LIGHT WITHIN EASY REACH OF THE PATIENT. WILL CONTINUE TO MONITOR PATIENT.
[2019-12-05 08:00] VITALS: BP 90/46
[2019-12-05] MEDS: LEVOTHYROXINE SODIUM 50 MCG TABLET PO SCH (08:15)
[2019-12-05] MEDS: PANTOPRAZOLE 40 MG/PACK PACK GT SCH ×2 (08:15→20:49)
[2019-12-05] MEDS: SUCRALFATE 1 G TABLET GT SCH ×4 (08:15→21:04)
[2019-12-05] MEDS: HYDROCODONE/APAP 5/325MG TABLET GT SCH (08:16)
[2019-12-05] MEDS: ZINC SULFATE 220 MG CAPSULE GT SCH (08:17)
[2019-12-05] MEDS: PROSOURCE / PROSTAT (PYXIS) 30 ML UDC GT SCH ×2 (08:17→17:29)
[2019-12-05] MEDS: DAKINS QUARTER STRENGTH (0.125%) 480 ML BOTTLE TOP SCH (08:20)
[2019-12-05] MEDS: CLOTRIMAZOLE 1% 15 GM TUBE TP SCH ×2 (08:24→17:31)
[2019-12-05] MEDS: LINEZOLID RTU BAG 600 MG in PREMIX 1 EA IV SCH ×2 (09:13→20:49)
[2019-12-05 10:04] LABS: EOSINOPHILS % (MANUAL) 1 % (0-4); LYMPHOCYTES % (MANUAL) 19 % (16-48); MONOCYTES % (MANUAL) 2 % (0-11.0); NEUTROPHILS % (MANUAL) 78 (42-76)
[2019-12-05 16:00] VITALS: BP 107/37
--- NOTE | 2019-12-05 16:00 | NUR ---
MS RN NOTES CHANGED PICC LINE CAP ON ONE OF THE LUMEN, WITH PICC LINE NURSE BRUCE. CHARGE NURSE AND HOSPITALIST BOTH MADE AWARE. CHANGED PICC LINE DRESSING PER POLICY. WILL CONTINUE TO MONITOR PATIENT.
[2019-12-05] MEDS: COLISTIMETHATE SODIUM 100 MG in IV NS 0.9% 50 ML IV SCH (17:31)
[2019-12-05] MEDS: FLUCONAZOLE IN NS 100 MG in PREMIX 1 EA IV SCH ×2 (18:18)
--- NOTE | 2019-12-05 18:30 | NUR ---
MS RN NOTES PATIENT SEEN AND EXAMINE BY DR. MILES, INFORMED TO REMOVE RIDER CATHETER DUE TO MINIMAL TO NO URINE OUTPUT. REMOVED RIDER CATHETER, RIDER CATHETER TIP INTACT, 30mL REMOVED FROM THE BALLOON FROM URINARY CATHETER. NO OUTPUT PRESENT UPON REMOVAL, WILL ENDORSE TO NIGHTSHIFT RN.
--- NOTE | 2019-12-05 18:39 | NUR ---
MS RN NOTES PATIENT IN BED RESTING COMFORTABLY, AWAKEN BY LIGHT TOUCH, NON-VERBAL AND ABLE TO OPE EYES. PATIENT ON NASAL CANNULA 2L, TOLERATING SETTING WELL, WITH NO SIGNS OF RESPIRATORY DISTRESS WITH EVEN NON-LABORED BREATHING AND NO SOB NOTED. PATIENT WOUND TREATMENT DONE ORDERED. G-TUBE SITE LEAKING CHANGED DRESSING, HOSPITALIST AWARE AND CHARGE NURSE AWARE. NEPRO INFUSING AT 45ml/hr WITH 60mL RESIDUAL. PATIENT IV ACCESS PATENT IN BOTH LUMENS. REMOVED RIDER CATHETER PER MD REQUESTS. ISAIAH HUGGER IN PLACE DUE TO PATIENT'S TEMPERATURE, CHARGE NURSE MADE AWARE. SAFETY PRECAUTIONS IMPLEMENTED WITH BED LOCKED BED IN THE LOWEST POSITION, BILATERAL SIDE RAILS UP, BED ALARM ON, AND CALL LIGHT WITHIN EASY REACH OF THE PATIENT. Addendum: 12/05/19 at 1911 by MELINDA LEAL RN MS RN NOTES PATIENT IN BED RESTING COMFORTABLY, AWAKEN BY LIGHT TOUCH, NON-VERBAL AND ABLE TO OPE EYES. PATIENT ON NASAL CANNULA 2L, TOLERATING SETTING WELL, WITH NO SIGNS OF RESPIRATORY DISTRESS WITH EVEN NON-LABORED BREATHING AND NO SOB NOTED. PATIENT WOUND TREATMENT DONE ORDERED. G-TUBE SITE LEAKING CHANGED DRESSING, HOSPITALIST AWARE AND CHARGE NURSE AWARE. NEPRO INFUSING AT 45ml/hr WITH 60mL RESIDUAL. PATIENT IV ACCESS PATENT IN BOTH LUMENS. REMOVED RIDER CATHETER PER MD REQUESTS. ISAIAH HUGGER IN PLACE DUE TO PATIENT'S TEMPERATURE, CHARGE NURSE MADE AWARE. SAFETY PRECAUTIONS IMPLEMENTED WITH BED LOCKED BED IN THE LOWEST POSITION, BILATERAL SIDE RAILS UP, BED ALARM ON, AND CALL LIGHT WITHIN EASY REACH OF THE PATIENT. WILL ENDORSE PLAN OF CARE TO UPCOMING NURSE.
[2019-12-05 20:00] VITALS: BP 92/42
--- NOTE | 2019-12-05 20:00 | NUR ---
MS/RN OPENING NOTES RECEIVED PATIENT IN BED, LETHARGIC, ON OXYGEN VIA NC , CHRONICALLY ILL M WITH ANASARCA AM WITH MULTIPLE WOUND IN SACRAL AREA, RIDER DRAINING URINE COLOR YELLOW WITH BLE GANGRENE, ON GTUBE FEEDING NEPHRO AT ATE OF 45 ML/HR, WITH RESIDUAL ABOVE 80, LNOTED DRAIN AROUNG GTUBE SITE, PATIENT TEMPERATURE COOL TO TOUCH REQUIRE WARM BEAR HUGGERM IV SITE DOMINIQUE PICC LINE FLUSHED, TO MONITOR, BED LOCKED, CALL LIGHTS WITHIN REACH. RECEIVED ENDORSEMENT FROM AM RN FOR PENELOPE.
[2019-12-05 20:23] LABS: HEMOGLOBIN 7.5 g/dL (11.5-14.8)
[2019-12-05 21:00] VITALS: BP 92/42
--- NOTE | 2019-12-05 21:00 | NUR ---
MS/RN NOTES PATIENT GTUBE WITH RESIDUAL ABOVE 260 ML. HELD GTUBE FEEDING AT THIS TIME, PATIENT GTUBE SITE LEAKING IN AREA , DRAIN MODERATE, DRESSING CHANGES. TO MONITOR TEMPERATURE RECTAL/ PATIENT FACE COOL TO TOUCH. MONITORED.
--- NOTE | 2019-12-05 22:41 | NUR ---
MS/RN NOTES DRAIN ON SITE NEAR GTUBE MODERATE DRAIN OBSERVED, RESIDUAL OBTAIN OVER 100ML. . TO MONITOR URINE,
--- NOTE | 2019-12-05 23:46 | NUR ---
blood sugar check at 99
[2019-12-06] VITALS (9 sets, daily range): BP systolic 64–131; BP diastolic 42–108
[2019-12-06] MEDS: METRONIDAZOLE 500 MG TABLET GT SCH ×3 (05:03→22:34)
[2019-12-06] MEDS: BLOOD SUGAR DIAGNOSTIC 1 EACH STRIP IN SCH ×3 (05:04→18:12)
[2019-12-06] MEDS: NEPRO 1,000 ML BOTTLE GT PRN (05:18)
--- NOTE | 2019-12-06 05:40 | NUR ---
TO RECHECK BLOOD SUGAR BLOOD SUGAR WAS 51,
--- NOTE | 2019-12-06 05:53 | NUR ---
PATIENT GTUBE RESIDUAL AT 60 ML TO CONTINUE WITH GTUBE FEEDING.
[2019-12-06] MEDS: DEXTROSE 50%-WATER 50 ML DISP.SYRIN IVP PRN ×2 (06:00→18:12)
--- NOTE | 2019-12-06 06:04 | NUR ---
DEXTROSE IV GIVEN DUE TO LOW BLOOD SUGAR OF 50.
[2019-12-06 06:21] LABS: BASOPHILS % (AUTO) 0.1 % (0.0-2.0); EOSINOPHILS % (AUTO) 2.5 % (0.0-6.0); HEMATOCRIT 22 % (33-45); LYMPHOCYTES # (AUTO) 1.5 /CMM (0.8-4.8); LYMPHOCYTES % (AUTO) 8.4 % (20.0-44.0); MEAN CORPUSCULAR HGB CONC 31 g/dl (31.0-36.0); MEAN CORPUSCULAR VOLUME 91 fL (82-100); MONOCYTES # (AUTO) 0.7 /CMM (0.1-1.30); NEUTROPHILS # (AUTO) 14.9 /CMM (1.8-8.9); PLATELET COUNT (AUTO) 149 /CMM (150-450); RED BLOOD CELL COUNT(AUTO) 2.43 MIL/uL (4.0-5.2); WHITE BLOOD COUNT (AUTO) 17.5 K/uL (4.3-11.0)
--- NOTE | 2019-12-06 06:51 | NUR ---
blood sugar at 103
[2019-12-06 06:52] LABS: CALCIUM, SERUM 7.4 mg/dL (8.5-10.1); CREATININE 1.8 mg/dL (0.6-1.3); POTASSIUM 3.6 mmol/L (3.5-5.1)
--- NOTE | 2019-12-06 06:56 | NUR ---
311-1 MS/RN NOTES ATTENDED ALL NEEDS, KEPT COMFORTABLE, NON VERBAL, LETHARGIC, EXTENSIVE ASSISTANCE NEEDED, REPOSITONED, WOUND DRESSING AND SKIN TREATMENT PROVIDED, GTUBE LEAKING MODERATE AMOUNT AND WITH RESIDUAL OVER 100ML. TEMPERATURE BELOW NORMAL ON BEAR HUG, WILL ENDORSE TO AM RN FOR PENELOPE, OXTHEN VIA NC AT 2 LITER.
--- NOTE | 2019-12-06 07:29 | NUR ---
MS/RN OPENING NOTES RECEIVED PATIENT IN BED LYING AT MODERATE HIGH BACKREST POSITION. NON-VERBAL AND EYES OPEN TO PAINFUL STIMULI. ON O2 VIA N/C AT 2LPM AT THIS TIME, TOLERATING WELL WITH NO ACUTE RESPIRATORY DISTRESS NOTED. PATIENT'S SKIN COOL TO TOUCH, WARM BEAR HUGGER IN PLACE. PERMACATH ON RCW IN PLACE WITH DRESSING C/D/I. DOMINIQUE PICC LINE INTACT AND PATENT. RIDER IN PLACE WITH NO OUTPUT NOTED AT THIS TIME. G-TUBE IN PLACE, FEEDING OF NEPHRO AT 45 ML/HR STOPPED BY PREVIOUS SHIFT DUE TO LEAKING AROUND GT SITE AND ABOVE 100 RESIDUALS. ASPIRATION PRECAUTIONS MAINTAINED. SAFETY MEASURES IN PLACE: BED LOCKED AND IN LOWEST POSITION W/ SR UP X3. CALL LIGHTS WITHIN REACH. WILL CONTINUE TO MONITOR PT ACCORDINGLY.
[2019-12-06 09:08] LABS: BAND % (MANUAL) 4 % (0.0-5.0); EOSINOPHILS % (MANUAL) 3 % (0-4); LYMPHOCYTES % (MANUAL) 5 % (16-48); METAMYELOCYTES % 1 % (0-0); MONOCYTES % (MANUAL) 5 % (0-11.0); NEUTROPHILS % (MANUAL) 82 (42-76)
[2019-12-06] MEDS: LINEZOLID RTU BAG 600 MG in PREMIX 1 EA IV SCH (09:28)
[2019-12-06] MEDS: PANTOPRAZOLE 40 MG/PACK PACK GT SCH ×2 (09:28→21:00)
[2019-12-06] MEDS: HYDROCODONE/APAP 5/325MG TABLET GT SCH (09:29)
[2019-12-06] MEDS: ZINC SULFATE 220 MG CAPSULE GT SCH (09:29)
[2019-12-06] MEDS: PROSOURCE / PROSTAT (PYXIS) 30 ML UDC GT SCH ×2 (09:30→16:14)
[2019-12-06] MEDS: LEVOTHYROXINE SODIUM 50 MCG TABLET PO SCH (09:46)
[2019-12-06] MEDS: SUCRALFATE 1 G TABLET GT SCH ×4 (09:46→22:00)
[2019-12-06] MEDS: CLOTRIMAZOLE 1% 15 GM TUBE TP SCH ×2 (10:16→16:15)
[2019-12-06] MEDS: DAKINS QUARTER STRENGTH (0.125%) 480 ML BOTTLE TOP SCH (10:19)
--- NOTE | 2019-12-06 11:17 | NUR ---
RN NOTES RECEIVED LAB RESULT FOR HGB LEVEL OF 7.0. DR NAPOLES ALREADY AWARE W/ ORDER FOR BT W/ PRBC. TELEPHONE CONSENT OBTAINED FROM LAKESHA CAIN AT 1105; LEFT MESSAGE TO CHARLA SWARTZ. WITNESSED BY SUSANA PATINO AND ARTEMIO PATINO.
--- NOTE | 2019-12-06 14:06 | NUR ---
RN NOTES PT STARTED ON BLOOD TRANSFUSION OF PRBC X1 BAG 285ML AT 60ML/HR. PRE BT V/: BP 88/46,. R 18, P 72 AND T 96.1F. WILL MONITOR FOR ANY ALLERGIC REACTIONS.
--- NOTE | 2019-12-06 14:27 | NUR ---
RN NOTES AFTER 15 MINUTES AF STARTING BLOOD TRANSFUSION, NO ALLERGIC REACTIONS NOTED. WILL CONTINUE TO MONITOR.
--- NOTE | 2019-12-06 17:52 | NUR ---
RN NOTES FEEDING NOTED WITH RESIDUALS OF 120ML, G-TUBE FEED HELD AT THIS TIME. WILL CONTINUE TO MONITOR
[2019-12-06] MEDS ORDERED: DAPTOMYCIN IV SCH ×3 (18:00→22:30)
[2019-12-06] MEDS ORDERED: NS 0.9% IV SCH ×3 (18:00→22:30)
[2019-12-06] MEDS: COLISTIMETHATE SODIUM 100 MG in IV NS 0.9% 50 ML IV SCH (18:03)
--- NOTE | 2019-12-06 18:15 | NUR ---
RN NOTES BLOOD TRANSFUSION OF PRBC X1 285ML FINISHED AT 1800. NO ALLERGIC AND NO ADVERSE REACTIONS NOTED DURING TRANSFUSION. WILL CONTINUE TO MONITOR
--- NOTE | 2019-12-06 18:25 | NUR ---
RN NOTES PATIENT NOTED W/ BLOOD GLUCOSE OF 42 MG/DL AT 1803. D50 GIVEN VIA IV AND RECHECKED BLOOD GLUCOSE AGAIN, W/ RESULT OF 120 MG/DL. CLAUS FELDER NP, MADE AWARE.
[2019-12-06] MEDS: FLUCONAZOLE IN NS 100 MG in PREMIX 1 EA IV SCH ×2 (18:48)
--- NOTE | 2019-12-06 18:57 | NUR ---
MS/RN CLOSING NOTES PATIENT IN BED LYING IN SEMI-ORTIZ'S POSITION AT THIS TIME. NON-VERBAL AND EYES OPEN TO PAINFUL STIMULI. S/P BLOOD TRANSFUSION THIS AFTERNOON, NO DELAYED ILL EFFECTS NOTED. ON O2 VIA N/C AT 2LPM, TOLERATING WELL WITH NO ACUTE RESPIRATORY DISTRESS NOTED. WARM BEAR HUGGER IN PLACE, PT SKIN WARM TO TOUCH AT THIS TIME. PERMACATH ON RCW IN PLACE WITH DRESSING C/D/I. DOMINIQUE PICC LINE INTACT AND PATENT, IV DIFLUCAN INFUSING AT THIS TIME. RIDER IN PLACE WITH NO OUTPUT NOTED DURING THE DAY. G-TUBE IN PLACE, RESIDUALS AT THIS TIME WAS 30ML, FEEDING OF NEPHRO AT 45 ML/HR RESTARTED. ASPIRATION PRECAUTIONS MAINTAINED. SAFETY MEASURES IN PLACE: BED LOCKED AND IN LOWEST POSITION W/ SR UP X3. CALL LIGHTS WITHIN REACH. PT FOR HD LATER PER MD ORDER. WILL ENDORSEE TO RESTAURANT EXPEDITOR NURSE FOR PENELOPE..
--- NOTE | 2019-12-06 19:30 | NUR ---
MS/RN OPENING NOTES RECEIVED PATIENT IN BED RESTING. PATIENT IS NON-VERBAL AND EYES OPEN. PATIENT ON O2 VIA N/C AT 2LPM, TOLERATING WELL WITH NO ACUTE RESPIRATORY DISTRESS OR SOB NOTED. WARM BEAR HUGGER IN PLACE. PERMACATH ON RCW IN PLACE WITH DRESSING INTACT. DOMINIQUE PICC LINE INTACT AND PATENT. RIDER INTACT. G-TUBE IN PLACE, RESIDUALS AT THIS TIME WAS 120 ML, FEEDING OF NEPHRO AT 45 ML/HR RESTARTED. SAFETY MEASURES ARE IN PLACE, BED LOCKED AND IN LOWEST POSITION W/ SIDE RAILS UP X3. CALL LIGHTS WITHIN REACH. WILL CONTINUE TO MONITOR.
[2019-12-06 19:32] LABS: HEMOGLOBIN 7.4 g/dL (11.5-14.8)
--- NOTE | 2019-12-06 22:00 | NUR ---
MS/RN NOTES PATIENT IS DONE WITH HD. OUTPUT 1,000 ML. BLOOD PRESSURE 66/43.
--- NOTE | 2019-12-06 22:05 | NUR ---
MS/RN CALLED PHARMACY TO RESTART TIME FOR ABX MEDS.
--- NOTE | 2019-12-06 23:00 | NUR ---
rn notes: rn animal maintenance supervisor speaking with family over the phone, lizabeth goodwin [phone]. notifying about pt's condition and currently being resuscitated.
[2019-12-06] MEDS ORDERED: IV NS 0.9% 1,000 ML IV STA (23:35)
[2019-12-06] MEDS: ALBUMIN 25% 25 GM in PREMIX 1 EA IV PRN (23:57)
[2019-12-06] MEDS: ALBUMIN 25% 100 ML IV ONE (23:57)
[2019-12-07] VITALS (83 sets, daily range): BP systolic 47–120; BP diastolic 18–88
[2019-12-07] MEDS ORDERED: IV NS 0.9% 1,000 ML IV SCH
[2019-12-07] MEDS ORDERED: NOREPINEPHRINE 4 MG/4 ML AMPUL IV ONE
[2019-12-07] MEDS ORDERED: PROPOFOL 100 ML IV PRN
--- NOTE | 2019-12-07 | NUR ---
FINGERER UNABLE TO ASSESS SKIN D/T HEMODYNAMIC INSTABILITY.
[2019-12-07 00:08] LABS: BASOPHILS # (AUTO) 0.1 /CMM (0.0-0.2); BASOPHILS % (AUTO) 0.3 % (0.0-2.0); EOSINOPHILS % (AUTO) 1.2 % (0.0-6.0); HEMATOCRIT 26 % (33-45); LYMPHOCYTES % (AUTO) 10.8 % (20.0-44.0); MEAN CORPUSCULAR HGB CONC 31 g/dl (31.0-36.0); MEAN CORPUSCULAR VOLUME 92 fL (82-100); MONOCYTES % (AUTO) 3.7 % (2.0-12.0); NEUTROPHILS # (AUTO) 23.7 /CMM (1.8-8.9); PLATELET COUNT (AUTO) 144 /CMM (150-450); RED BLOOD CELL COUNT(AUTO) 2.78 MIL/uL (4.0-5.2); WHITE BLOOD COUNT (AUTO) 28.2 K/uL (4.3-11.0)
[2019-12-07] MEDS: NOREPINEPHRINE 32 MG in IV NS 0.9% 218 ML IV PRN ×4 (00:14→20:36)
[2019-12-07 00:26] LABS: ABG BASE EXCESS -4.5 mmol/L; ABG OXYGEN SATURATION 99.3 % (92.0-98.5); ABG PCO2 31.7 mmHg (35.0-45.0); ABG PH 7.408 (7.350-7.450); AaDO2 463.3 mmHg; COHb 2.2 % (0.5-1.5); MetHb 0.5 % (0.0-1.5); O2Hb 96.6 % (94.0-97.0); PEEP,BG 0 cm H2O; SITE, ABG Right Brachial; VENT MODE, BG AC 20/500/100%/+0; VT, ABG 500 mL
[2019-12-07] MEDS ORDERED: VASOPRESSIN INJ 20 UNIT/ML VIAL ONE ×2 (00:26→00:38)
[2019-12-07] MEDS ORDERED: DEXTROSE 50%-WATER 50 ML DISP.SYRIN IV PRN (00:30)
[2019-12-07] MEDS ORDERED: VASOPRESSIN INJ 20 UNIT in IV NS 0.9% 39 ML IV PRN (00:30)
[2019-12-07] MEDS ORDERED: INSULIN REGULAR, HUMAN 100 UNIT/ML 3 ML VIAL SQ PRN (00:30)
--- NOTE | 2019-12-07 00:40 | NUR ---
PT was placed on [facility] vent with noted setting post code blue. ETT 7.5 @ 23cm lip patent and secure via anchor fast. Positive co2 color change noted. X-ray confirmed proper placement of ETT. Ambu bag at [facility]. Vent connected to red outlet. Alarms set and audible. pt tolerating setting well. Addendum: 12/07/19 at 0046 by OSCAR PERDOMO RT Amended: Links added.
[2019-12-07] MEDS: VASOPRESSIN INJ 40 UNIT in IV NS 0.9% 38 ML IV PRN ×2 (00:43→14:20)
[2019-12-07] MEDS: BLOOD SUGAR DIAGNOSTIC 1 EACH STRIP IN SCH ×5 (00:46→21:54)
[2019-12-07] MEDS: ALBUMIN 25% 100 ML IV ONE (00:48)
[2019-12-07 00:53] LABS: CALCIUM, SERUM 8.6 mg/dL (8.5-10.1); CARBON DIOXIDE 24 mmol/L (21-32); CHLORIDE 105 mmol/L (98-107); CREATININE 1.6 mg/dL (0.6-1.3); GLUCOSE 112 mg/dL (74-106); POTASSIUM 3.6 mmol/L (3.5-5.1); SODIUM SERUM 141 mmol/L (136-145); UREA NITROGEN, BLOOD 28 mg/dL (7-18)
[2019-12-07 00:58] LABS: ALANINE AMINOTRANSFERASE 14 U/L (12-78); ALKALINE PHOSPHATASE 133 U/L (46-116); ASPARTATE AMINOTRANSFERASE 63 U/L (15-37); BILIRUBIN,TOTAL 0.5 mg/dL (0.2-1.0); MAGNESIUM 1.9 mg/dL (1.8-2.4); PHOSPHORUS 2.5 mg/dL (2.5-4.9); TOTAL PROTEIN, SERUM 3.5 g/dL (6.4-8.2)
[2019-12-07 01:15] LABS: ALBUMIN 0.7 g/dL (3.4-5.0)
[2019-12-07] MEDS: METRONIDAZOLE 500 MG TABLET GT SCH ×3 (04:00→21:09)
[2019-12-07 05:26] LABS: BASOPHILS # (AUTO) 0.1 /CMM (0.0-0.2); BASOPHILS % (AUTO) 0.3 % (0.0-2.0); EOSINOPHILS % (AUTO) 0.4 % (0.0-6.0); HEMATOCRIT 35 % (33-45); HEMOGLOBIN 10.8 g/dL (11.5-14.8); LYMPHOCYTES # (AUTO) 1.6 /CMM (0.8-4.8); LYMPHOCYTES % (AUTO) 4.4 % (20.0-44.0); MEAN CORPUSCULAR HGB CONC 31 g/dl (31.0-36.0); MEAN CORPUSCULAR VOLUME 92 fL (82-100); MONOCYTES # (AUTO) 1.5 /CMM (0.1-1.30); MONOCYTES % (AUTO) 4.1 % (2.0-12.0); NEUTROPHILS # (AUTO) 32.4 /CMM (1.8-8.9); NEUTROPHILS % (AUTO) 90.8 % (43.0-81.0); PLATELET COUNT (AUTO) 179 /CMM (150-450); RED BLOOD CELL COUNT(AUTO) 3.77 MIL/uL (4.0-5.2)
[2019-12-07 05:47] LABS: WHITE BLOOD COUNT (AUTO) 35.7 K/uL (4.3-11.0)
[2019-12-07] MEDS ORDERED: IPRATROPIUM NEB FS 0.5 MG/2.5 ML AMPUL.NEB NEB PRN (06:00)
[2019-12-07] MEDS ORDERED: ALBUTEROL FS 2.5 MG/0.5 ML VIAL.NEB NEB PRN (06:00)
[2019-12-07] MEDS ORDERED: BLOOD SUGAR DIAGNOSTIC 1 EACH STRIP IN SCH (06:00)
[2019-12-07 06:02] LABS: BAND % (MANUAL) 23 % (0.0-5.0); LYMPHOCYTES % (MANUAL) 6 % (16-48); METAMYELOCYTES % 1 % (0-0); MONOCYTES % (MANUAL) 6 % (0-11.0); MYELOCYTES % 1 % (0-0); NEUTROPHILS % (MANUAL) 63 (42-76)
--- NOTE | 2019-12-07 06:30 | NUR ---
PRINTING ROLLER POLISHER RCD CALL FROM PTS DAUGHTER UPDATED ON PLAN OF CARE; DAUGHTER HOPEFUL PT WILL BE OKAY POST INTUBATION. WISHES FOR PT TO BE FULL CODE.
--- NOTE | 2019-12-07 06:32 | NUR ---
AUTOMOBILE DAMAGE APPRAISER PT HEMODYNAMICALLY UNSTABLE TO BE TURNED AND REPOSITIONED.
--- NOTE | 2019-12-07 06:43 | NUR ---
COMPRESSOR BATTERY PELLETS RCD CALL FROM LAB GLUCOSE 38 PER LISA HE WILL SEND SOMEONE TO REDRAW PT. FINGER STICK DONE WITH RESULTS 22 D50 GIVEN. RECHECK GLUCOSE 96. CALLED LAB AGAIN AND WAS TOLD RESULTS RELEASED ALREADY. CHECKED MULTIPLE TIMES. LABS HAVE NOT BEEN RELEASED.
[2019-12-07 06:48] LABS: CALCIUM, SERUM 8.9 mg/dL (8.5-10.1); CREATININE 1.8 mg/dL (0.6-1.3); POTASSIUM 3.7 mmol/L (3.5-5.1)
--- NOTE | 2019-12-07 06:49 | NUR ---
PAIN MEDICINE PHYSICIAN RCD CALL FROM LAB THEY WILL RELEASE THE RESULTS NOW.
--- NOTE | 2019-12-07 07:10 | NUR ---
RT Pt received orally intubated on mechanical ventilation with noted settings. No SOB or respiratory distress noted. Addendum: 12/07/19 at 0929 by CHARLY DACOSTA RT Amended: Links added.
--- NOTE | 2019-12-07 07:15 | NUR ---
FERMENTING CELLARS SUPERVISOR NOTES RECEIVED PATIENT IN BED, SUPINE POSITION. CURRENT B/P 66/29 HR: 93. DOMINIQUE PICC LINE INTACT AND PATENT. CONTINUED ON PITRESSIN AND LEVOPHED INFUSING ORDERED. ET TUBE IN PLACE 7.08/09. OBTAINED WHITE YELLOW THIN SECRETION WHEN SUCTIONED. PATIENT REMAINS OBTUNDED. EYES OPEN. RCW PERMACATH INTACT WITH DRESSING IN PLACE. BUE AND BLE EDEMA WITH WEEPING NOTED, CONTINUED TO ELEVATE WITH PILLOWS. FREQUENT VISUAL CHECK DONE. WILL CONTINUE TO MONITOR FOR CHANGES.
[2019-12-07 07:20] LABS: BILIRUBIN,DIRECT 0.6 mg/dL (0.0-0.2)
[2019-12-07] MEDS: PHENYLEPHRINE 100 MG in IV NS 0.9% 240 ML IV PRN ×3 (07:21→20:42)
[2019-12-07] MEDS: SUCRALFATE 1 G TABLET GT SCH ×4 (07:30→21:09)
[2019-12-07] MEDS: LEVOTHYROXINE SODIUM 50 MCG TABLET PO SCH (07:30)
[2019-12-07] MEDS: PROSOURCE / PROSTAT (PYXIS) 30 ML UDC GT SCH ×2 (08:08→16:42)
[2019-12-07] MEDS: ZINC SULFATE 220 MG CAPSULE GT SCH (08:08)
[2019-12-07] MEDS: PANTOPRAZOLE 40 MG/PACK PACK GT SCH ×2 (08:08→21:10)
[2019-12-07] MEDS: HYDROCODONE/APAP 5/325MG TABLET GT SCH (08:08)
[2019-12-07] MEDS: DAKINS QUARTER STRENGTH (0.125%) 480 ML BOTTLE TOP SCH (08:45)
[2019-12-07] MEDS: CLOTRIMAZOLE 1% 15 GM TUBE TP SCH ×2 (08:45→16:43)
[2019-12-07] MEDS: IV D5/ 0.9% NACL 1,000 ML IV PRN ×2 (08:59→14:32)
[2019-12-07] MEDS: HYDROCORTISONE SOD SUCCINATE 100 MG/2 ML VIAL IV SCH ×3 (08:59→21:09)
[2019-12-07] MEDS ORDERED: ALBUMIN 25% 25 GM in PREMIX 1 EA IV ONE (09:15)
[2019-12-07 09:40] LABS: THYROID STIMULATING HORMONE 14.29 uIU/mL (0.358-3.74)
[2019-12-07] MEDS: DEXTROSE 50%-WATER 50 ML DISP.SYRIN IV PRN (10:09)
--- NOTE | 2019-12-07 10:09 | NUR ---
CEMENT WORKER NOTES BS 54 MG/DL D50 GIVEN ORDERED.
--- NOTE | 2019-12-07 10:38 | NUR ---
RN NOTE Repeat BS after D50 is 133.
--- NOTE | 2019-12-07 14:00 | NUR ---
BULK MATERIALS HANDLING PLANT OPERATOR NOTES RELAYED TO DR. NAPOLES RE: CORTISOL LEVEL AND PATIENT IS ON SOLU-CORTEF WITH NNO AT THIS TIME AND TO CONTINUE SOLU-CORTEF ORDERED.
[2019-12-07] MEDS: INSULIN REGULAR, HUMAN 100 UNIT/ML 3 ML VIAL SQ PRN ×2 (14:07→17:33)
--- NOTE | 2019-12-07 17:00 | NUR ---
BANKING ANALYST NOTES PER DR. NAPOLES THE RATE IS LOW RE: PT'S EPISODE OF A-FIB.
--- NOTE | 2019-12-07 17:00 | NUR ---
HIDE DROPPER NOTES RELAYED TO DR. NAPOLES, PATIENT WITH EPISODE OF A-FIB WITH NNO AT THIS TIME.
[2019-12-07] MEDS: FLUCONAZOLE IN NS 100 MG in PREMIX 1 EA IV SCH ×2 (17:05)
--- NOTE | 2019-12-07 17:33 | NUR ---
BRAND ANALYST NOTES BS 135MG/DL HELD INSULIN D/T NPO DIAGNOSIS.
[2019-12-07] MEDS: COLISTIMETHATE SODIUM 100 MG in IV NS 0.9% 50 ML IV SCH (18:01)
--- NOTE | 2019-12-07 18:49 | NUR ---
FORKLIFT TECHNICIAN NOTES PATIENT REMAINS IN SUPINE POSITION. CURRENT B/P 76/16 HR: 72. DOMINIQUE PICC LINE INTACT AND PATENT INFUSING PITRESSIN, LEVOPHED AND MISSAEL ORDERED. ET TUBE REMAINS IN PLACE 7.08/09. ON MECHANICAL VENTILATION ORDERED MARY VENT SETTINGS WELL. ON AC 20; TV: 500 FIO2 OF 100%. RCW PERMACATH INTACT WITH DRESSING IN PLACE. BUE AND BLE EDEMA STILL WITH WEEPING NOTED, CONTINUED TO ELEVATE WITH PILLOWS. RIDER CATHETER INTACT AND PATENT VIA BEDSIDE VIA GRAVITY. FREQUENT VISUAL CHECK DONE. UNABLE TO TURN AND REPOSITION PATIENT D/T PATIENT HEMODYNAMICALLY UNSTABLE THROUGHOUT THE SHIFT. KEPT PATIENT COMFORTABLE. ENDORSED TO ONCOMING SHIFT FOR CONTINUATION OF CARE.
--- NOTE | 2019-12-07 19:30 | NUR ---
RN OPENING NOTES Received the patient hemodynamically unstable: PATIENT REMAINS IN SUPINE POSITION. CURRENT B/P 76/16 HR: 72. DOMINIQUE PICC LINE INTACT AND PATENT INFUSING PITRESSIN, LEVOPHED AND MISSAEL ORDERED. ET TUBE REMAINS IN PLACE 7.08/09. ON MECHANICAL VENTILATION ORDERED MARY VENT SETTINGS WELL. ON AC 20; TV: 500 FIO2 OF 100%. RCW PERMACATH INTACT WITH DRESSING IN PLACE. BUE AND BLE EDEMA STILL WITH WEEPING NOTED, CONTINUED TO ELEVATE WITH PILLOWS. RIDER CATHETER INTACT AND PATENT VIA BEDSIDE VIA GRAVITY.
--- NOTE | 2019-12-07 20:01 | NUR ---
client current bp is 65/40; HR 70. The client remains hemodynamically unstable. Pupils nonreactive, unreseponsive to light pain.
[2019-12-07 20:44] LABS: CALCIUM, SERUM 7.9 mg/dL (8.5-10.1); CREATININE 2.1 mg/dL (0.6-1.3); MAGNESIUM 1.8 mg/dL (1.8-2.4); POTASSIUM 3.8 mmol/L (3.5-5.1)
--- NOTE | 2019-12-07 21:00 | NUR ---
the client stopped having afib at this time.
[2019-12-07] MEDS: LANOLIN/MIN OIL/PETROLAT,WHT 3.5 GM TUBE EACHEYE SCH (21:14)
--- NOTE | 2019-12-07 21:20 | NUR ---
the client is now afib, HR 111; BP 75/47
--- NOTE | 2019-12-07 22:00 | NUR ---
SPOKE TO THE DAUGHTER OF THE CLIENT. UPDATED HER ON THE CONDITION OF THE CLIENT. SHE REQUESTED A VISIT FOR KISHA 12/07/19. THE VISIT WAS APPROVED BY THE NURSE SENIOR FINANCIAL ANALYST CONSIDERING THE CRITICAL CONDITION OF THE CLIENT.
--- NOTE | 2019-12-07 22:45 | NUR ---
CLIENT REMAINS UNSTABLE, BP62/22; HR 110- 115. RR 25. WILL CONTINUE TO MONITOR.
--- NOTE | 2019-12-07 23:33 | NUR ---
THE CLIENT REAMISN HEMODYNAMICALLY UNSTABLE AT THIS TIME. BP 69/53; HR 114; RR 26
--- NOTE | 2019-12-07 23:43 | NUR ---
HOSPITALIST VISITED THE CLIENT; AT THIS POINT A -FIB MEDICATIONS ARE NOT RECOMMENDED FOR THE PATIENT IT WOULD DROP BLOOD PRESSURE LOWER FROM THE CRITICAL LOW LEVEL WHERE IT ALREADY IS. SHE HAS SUGGESTED TO CONTINUE TO MONITOR AND LET THE FAMILY KNOW THE CLIENTS CONDITION AT THIS TIME. HOSPITALIST RECOMMENDS NOT TO MOVE THE CLIENT FOR BED BATH THE CLIENT IS CRITICALLY UNSTABLE AT THIS MOMENT.
--- NOTE | 2019-12-07 23:48 | NUR ---
THE CLIENT CONTINUES TO BE HEMODYNAMICALLY UNSTABLE. AT THIS MOMENT BP IS65/18; HR 112; RR 26
[2019-12-08] VITALS (63 sets, daily range): BP systolic 25–120; BP diastolic 12–77
--- NOTE | 2019-12-08 00:55 | NUR ---
FAMILY MEMBERS ARE AT THIS MOMENT WITH THE CLIENT. THEY ARE AT THIS MOMENT CONSIDERING OPTIONS FOR THE CODE OF THE CLIENT. SPOKE WITH THE FAMILY MEMBERS AND EXPLAINED THE BP AND HR AND ITS NORMAL RANGES TO MAKE SENSE OF THE CRITICAL SITUATION OF THE CLIENT IN RELATION TO THE CURRENT RANGES OF THE HR AND BP.
--- NOTE | 2019-12-08 01:27 | NUR ---
THE CLIENT CONTINUE TO BE CRITICALLY UNSTABLE; BP 75/29; HR 116; 28. FAMILY MEMBERS ARE STILL IN THE ROOM. Addendum: 12/08/19 at 0347 by AVIVA HALL RN RR 28
--- NOTE | 2019-12-08 02:30 | NUR ---
BECAUSE OF THE CONDITION OF THE CLIENT, NO BED BATH WAS PROVIDED. THE HOSPITALIST IS AWARE.
[2019-12-08] MEDS ORDERED: PHENYLEPHRINE 10 MG/ML VIAL ONE (02:53)
--- NOTE | 2019-12-08 03:00 | NUR ---
THE FAMILY OF THE CLIENT HAS AGREED TO DNR. FORMS HAS BEEN SIGNED AND PLACED IN CHART. HOSPITALIST HAS BEEN INFORMED. THE CODE HAS BEEN UPDATED.
[2019-12-08] MEDS: NOREPINEPHRINE 32 MG in IV NS 0.9% 218 ML IV PRN ×2 (03:06→09:14)
[2019-12-08] MEDS: VASOPRESSIN INJ 40 UNIT in IV NS 0.9% 38 ML IV PRN ×2 (03:07→08:33)
[2019-12-08] MEDS: PHENYLEPHRINE 100 MG in IV NS 0.9% 240 ML IV PRN ×2 (03:29→09:13)
[2019-12-08] MEDS: BLOOD SUGAR DIAGNOSTIC 1 EACH STRIP IN SCH ×4 (03:38→13:40)
--- NOTE | 2019-12-08 04:17 | NUR ---
THE CLIENT CONTINUES TO BE CORTICALLY UNSTABLE AT THIS TIME. BP 64/21; HR75; RR 29.
[2019-12-08] MEDS: HYDROCORTISONE SOD SUCCINATE 100 MG/2 ML VIAL IV SCH ×2 (04:57→13:12)
[2019-12-08] MEDS: METRONIDAZOLE 500 MG TABLET GT SCH ×2 (04:57→13:12)
[2019-12-08 05:13] LABS: EOSINOPHILS % (AUTO) 0.5 % (0.0-6.0); HEMATOCRIT 25 % (33-45); HEMOGLOBIN 7.5 g/dL (11.5-14.8); LYMPHOCYTES # (AUTO) 1.3 /CMM (0.8-4.8); LYMPHOCYTES % (AUTO) 2.1 % (20.0-44.0); MEAN CORPUSCULAR HGB CONC 30 g/dl (31.0-36.0); MEAN CORPUSCULAR VOLUME 94 fL (82-100); MONOCYTES # (AUTO) 0.9 /CMM (0.1-1.30); MONOCYTES % (AUTO) 1.5 % (2.0-12.0); NEUTROPHILS # (AUTO) 58.3 /CMM (1.8-8.9); NEUTROPHILS % (AUTO) 95.9 % (43.0-81.0); PLATELET COUNT (AUTO) 136 /CMM (150-450); RED BLOOD CELL COUNT(AUTO) 2.63 MIL/uL (4.0-5.2)
--- NOTE | 2019-12-08 05:19 | NUR ---
ALL MORNING MEDS PROVIDED; CLIENT REMAINS UNSTABLE BP 69/38; HR 115; RR 30.
[2019-12-08 05:40] LABS: WHITE BLOOD COUNT (AUTO) 60.8 K/uL (4.3-11.0)
[2019-12-08 05:42] LABS: ALBUMIN 1.6 g/dL (3.4-5.0); BILIRUBIN,TOTAL 2.5 mg/dL (0.2-1.0); CALCIUM, SERUM 8.4 mg/dL (8.5-10.1); CREATININE 2.1 mg/dL (0.6-1.3); PHOSPHORUS 2.5 mg/dL (2.5-4.9); POTASSIUM 4.1 mmol/L (3.5-5.1); TOTAL PROTEIN, SERUM 4.4 g/dL (6.4-8.2)
--- NOTE | 2019-12-08 06:00 | NUR ---
CRITICAL LABS HAVE BEEN CONVEYED TO THE HOSPITALIST: TROPONIN 4.146; WBC 60.8; Hg 7.5.
[2019-12-08 06:18] LABS: BAND % (MANUAL) 8 % (0.0-5.0); LYMPHOCYTES % (MANUAL) 2 % (16-48); MONOCYTES % (MANUAL) 3 % (0-11.0); NEUTROPHILS % (MANUAL) 87 (42-76)
--- NOTE | 2019-12-08 06:56 | NUR ---
RN CLOSING NOTES THE CLIENT CONTINUES CRITICALLY UNSTABLE. BP 77/55; HR 88; RR 25. CLIENT IS NOW DNR. CLIENT RESPONDS TO LIGHT PAIN. VENT SETTINGS INDICATED IN FLOW SHEET. G TUBE PATENT, LEAKAGE NOTED ON THE SITE. NPO EXCEPT FOR MEDS. THE CLIENT CONTINUES ON MAX AMOUNT OF PRESSORS, LEVO, MISSAEL, VASOPRESSIN. EDEMA +4 BLE; BUE + 4 EDEMA. ALL COMFORT MEASURES IN PLACE. SAFETY MECHANISMS IN PLACE. WILL ENDORSE THE INCOMING NURSE.
[2019-12-08] MEDS: LEVOTHYROXINE SODIUM 50 MCG TABLET PO SCH (07:30)
[2019-12-08] MEDS: SUCRALFATE 1 G TABLET GT SCH ×2 (07:30→11:36)
--- NOTE | 2019-12-08 07:30 | NUR ---
rn notes received patient, obtunded, eyes 3-4mm nonreactive to light. gasping air despite oral intubation any oxygen support via mechanical ventilator. sating 100% on the monitor. ngt clamped. afib with hr on the 90S to 100s. weeping edema all over. hd cath on the right chest wall. iv access on the frank with ongoing rafat at 3mcg/kg/min, levo at 1mcg/kg/min and petrissin at 0.04mcg/kg/min ( all pressors on the max dose). unable to obtain blood pressure at this time. lawrence catheter in place,minimal output, leif color. safety measures observed and maintained. call light placed within reach. will continue to monitor patient accordingly
--- NOTE | 2019-12-08 07:50 | NUR ---
RT PATIENT REC'D ORALLY INTUBATED ON [facility] VENT ON CRITICAL CONDITION. ALARMS CHECKED + AUDIBLE. [facility]. PT CODE STATUS DNR. Addendum: 12/08/19 at 1652 by VLADIMIR BLACK RT Amended: Links added.
[2019-12-08] MEDS: HYDROCODONE/APAP 5/325MG TABLET GT SCH (08:45)
[2019-12-08] MEDS: PROSOURCE / PROSTAT (PYXIS) 30 ML UDC GT SCH (08:46)
[2019-12-08] MEDS: ZINC SULFATE 220 MG CAPSULE GT SCH (08:46)
[2019-12-08] MEDS: PANTOPRAZOLE 40 MG/PACK PACK GT SCH (08:46)
[2019-12-08] MEDS: CLOTRIMAZOLE 1% 15 GM TUBE TP SCH (08:47)
[2019-12-08] MEDS: LANOLIN/MIN OIL/PETROLAT,WHT 3.5 GM TUBE EACHEYE SCH (08:47)
[2019-12-08] MEDS: DAKINS QUARTER STRENGTH (0.125%) 480 ML BOTTLE TOP SCH (08:47)
--- NOTE | 2019-12-08 10:08 | NUR ---
rn notes blood sugar initially check with results at 47. repeated check at 56. prn iv d50/50 given as ordered for blood sugar >60.
[2019-12-08] MEDS: DEXTROSE 50%-WATER 50 ML DISP.SYRIN IVP PRN (10:15)
--- NOTE | 2019-12-08 11:08 | NUR ---
rn notes >blood sugar rechecked at 89. > clarified with Dr. mauricio if okay to administer d5 nacl at 200cc/hr despite the patient being a dialysis patient and beinfg edematous all over because patient is on npo status and blood sugar gas been on the low side. per MD, leo to administer at 100cc/hr. orders noted and carried out
[2019-12-08] MEDS ORDERED: IV D5/ 0.9% NACL 1,000 ML IV PRN (13:00)
[2019-12-08] MEDS: DEXTROSE 50%-WATER 50 ML DISP.SYRIN IV PRN (13:40)
--- NOTE | 2019-12-08 14:00 | NUR ---
rn notes blood sugar initially at 60, rechecked and was 57 prn d50 ic was again administrered at this time
--- NOTE | 2019-12-08 14:50 | NUR ---
rn notes blood sugar recheck after d50 is now at 93mg/dl
--- NOTE | 2019-12-08 15:44 | NUR ---
rn notes RN at bedside, wound are being done. patient vomited greenish vomitus and was immediately noted to asystole on the monitor. heart was auscultated bt CAREY Ramos but was unappreciated. Charge Nurse Holden, made aware who pronounce the patient . RP was made aware via phone call. daughter Rona was also made aware. Dr. Leroy informed by CAREY Hatch. > Called [facility], spoke to August, who release the body.
--- NOTE | 2019-12-08 15:49 | NUR ---
RN NOTE PT DNR STATUS. FOUND PT ASYSTOLIC, APNEIC, AREFLEXIVE. PRONOUNCED AT 1534
--- NOTE | 2019-12-08 16:10 | NUR ---
rhoda notes body transported to the [facility] [place]
== END 2019-12-08 15:34 | disposition expired | DRG 853 ==
LOC: ER 10:51 → TELE1 12:53 → ICU 11-21 14:54 → TELE1 11-21 15:49 → TELE 11-21 16:05 → MED 11-24 08:55 → ICU 12-06 23:32
PROVIDERS: ADMIT Internal Medicine
PROC: 30233N1 Transfusion of Nonautologous Red Blood Cells into Peripheral Vein, Percutaneous Approach (ICD-10-PCS; principal; 2019-11-20)
PROC: 30233N1 Transfusion of Nonautologous Red Blood Cells into Peripheral Vein, Percutaneous Approach (ICD-10-PCS; 2019-11-20)
PROC: 5A1D70Z Performance of Urinary Filtration, Intermittent, Less than 6 Hours Per Day (ICD-10-PCS; 2019-11-20)
PROC: 0DH63UZ Insertion of Feeding Device into Stomach, Percutaneous Approach (ICD-10-PCS; 2019-11-26)
PROC: 0DH63UZ Insertion of Feeding Device into Stomach, Percutaneous Approach (ICD-10-PCS; 2019-11-26)
PROC: 0QB10ZZ Excision of Sacrum, Open Approach (ICD-10-PCS; 2019-11-27)
PROC: 5A1945Z Respiratory Ventilation, 24-96 Consecutive Hours (ICD-10-PCS; 2019-12-07)
PROC: 0BH17EZ Insertion of Endotracheal Airway into Trachea, Via Natural or Artificial Opening (ICD-10-PCS; 2019-12-07)
PROC: 5A2204Z Restoration of Cardiac Rhythm, Single (ICD-10-PCS; 2019-12-07)
DX: A41.9 Sepsis, unspecified organism (principal); L89.324 Pressure ulcer of left buttock, stage 4; L89.314 Pressure ulcer of right buttock, stage 4; L89.154 Pressure ulcer of sacral region, stage 4; G93.41 Metabolic encephalopathy; E43 Unspecified severe protein-calorie malnutrition; N18.6 End stage renal disease; I50.33 Acute on chronic diastolic (congestive) heart failure; I21.A1 Myocardial infarction type 2; R65.21 Severe sepsis with septic shock; J96.21 Acute and chronic respiratory failure with hypoxia; D68.69 Other thrombophilia; E87.1 Hypo-osmolality and hyponatremia; I13.2 Hypertensive heart and chronic kidney disease with heart failure and with stage 5 chronic kidney disease, or end stage renal disease; E11.52 Type 2 diabetes mellitus with diabetic peripheral angiopathy with gangrene; E87.2 Acidosis; G93.1 Anoxic brain damage, not elsewhere classified; J98.11 Atelectasis; K94.23 Gastrostomy malfunction; K31.6 Fistula of stomach and duodenum; L97.429 Non-pressure chronic ulcer of left heel and midfoot with unspecified severity; L97.419 Non-pressure chronic ulcer of right heel and midfoot with unspecified severity; L97.229 Non-pressure chronic ulcer of left calf with unspecified severity; L97.219 Non-pressure chronic ulcer of right calf with unspecified severity; M86.9 Osteomyelitis, unspecified; Z66 Do not resuscitate; Z51.5 Encounter for palliative care; E88.09 Other disorders of plasma-protein metabolism, not elsewhere classified; Z99.2 Dependence on renal dialysis; E11.22 Type 2 diabetes mellitus with diabetic chronic kidney disease; E11.65 Type 2 diabetes mellitus with hyperglycemia; Z87.01 Personal history of pneumonia (recurrent); Z88.0 Allergy status to penicillin; Z88.1 Allergy status to other antibiotic agents; Z88.2 Allergy status to sulfonamides; Z79.82 Long term (current) use of aspirin; Z79.899 Other long term (current) drug therapy; Z86.73 Personal history of transient ischemic attack (TIA), and cerebral infarction without residual deficits; I46.9 Cardiac arrest, cause unspecified; L30.4 Erythema intertrigo; R13.10 Dysphagia, unspecified; Y95 Nosocomial condition; Z86.19 Personal history of other infectious and parasitic diseases; E87.5 Hyperkalemia; E83.39 Other disorders of phosphorus metabolism; E03.9 Hypothyroidism, unspecified; D63.1 Anemia in chronic kidney disease; I25.2 Old myocardial infarction; N30.90 Cystitis, unspecified without hematuria; N25.0 Renal osteodystrophy; K59.00 Constipation, unspecified; I70.0 Atherosclerosis of aorta; I49.01 Ventricular fibrillation; L89.626 Pressure-induced deep tissue damage of left heel; L89.616 Pressure-induced deep tissue damage of right heel; Y83.3 Surgical operation with formation of external stoma as the cause of abnormal reaction of the patient, or of later complication, without mention of misadventure at the time of the procedure; Y82.9 Unspecified medical devices associated with adverse incidents; K29.70 Gastritis, unspecified, without bleeding; B96.20 Unspecified Escherichia coli [E. coli] as the cause of diseases classified elsewhere; B95.2 Enterococcus as the cause of diseases classified elsewhere; K57.30 Diverticulosis of large intestine without perforation or abscess without bleeding; K80.20 Calculus of gallbladder without cholecystitis without obstruction; M62.562 Muscle wasting and atrophy, not elsewhere classified, left lower leg; M62.561 Muscle wasting and atrophy, not elsewhere classified, right lower leg; E11.69 Type 2 diabetes mellitus with other specified complication
CPT/HCPCS: 31720; 36415; 36600; 43246; 71045-TC; 74018; 80048-TC; 80053-TC; 80061-TC; 80076-TC; 80202-TC; 81000-TC; 82040-TC; 82248-TC; 82272-TC; 82533; 82728-TC; 82803-TC; 82962-TC; 83540-TC; 83605-TC; 83735-TC; 84100-TC; 84155; 84165; 84439-TC; 84443-TC; 84481; 84484-TC; 85025-TC; 85027-TC; 85730-TC; 86706; 86850-TC; 86921-TC; 87040-TC; 87070-TC; 87081-TC; 87086-TC; 87186-TC; 87340; 90935-TC; 93307-TC; 94002-TC; 94003-TC; 94799-TC; 99082-TC; A4216; A4217; A6253; A6403; C9113; C9803-CS; G0378; J0696; J0770; J0878; J1450; J1720; J1815; J1940; J2020; J2185; J2270; J2370; J2916; J3370; J3490; J7030; J7040; J7042; J7050; J7060; P9016-BL; P9047; Q9963; Q9967; U0003-CS